=== PATIENT | female | born 1980 ===

== ENCOUNTER 2023-02-26 03:00 | Emergency (ER) | payer OTHER, SELFPAY ==
[2023-02-26 03:08] VITALS: BP 149/92; PULSE 94; RESP 16; TEMP 36.1; O2SAT 98; BMI 32.6
--- NOTE | 2023-02-26 03:55 | ED_ITS ---
HPI - General Adult General Chief complaint: General Medical Stated complaint: ?Exposure Time Seen by Provider: 02/26/23 03:50 Source: patient Mode of arrival: ambulatory Limitations: no limitations History of Present Illness HPI narrative: 42-year-old female came in concern of STDs. Patient been having sexual intercourse with her co-worker for the past 2 weeks, condom broke yesterday while having intercourse. Patient now is concern of STDs/HIV wanted to be checked and started on prophylactic medications. Related Data Previous Rx's Medication Instructions Recorded doxycycline hyclate 100 mg tablet 100 mg PO BID #20 tabs 02/26/23 Allergies Allergy/AdvReac Type Severity Reaction Status Date / Time ibuprofen AdvReac Anaphylaxis Verified 02/26/23 03:13 Review of Systems Review of Systems: All other systems are reviewed and are negative Constitutional: Reports as per HPI and Reports no additional constitutional complaints Eyes: Reports as per HPI and Reports no additional eye complaints Reports system reviewed and no additional complaints, except as documented Cardiovascular: Reports as per HPI and Reports no additional cardiovascular complaints Respiratory: Reports as per HPI and Reports no additional respiratory complaints Gastrointestinal: Reports as per HPI and Reports no additional gastrointestinal complaints Genitourinary: Reports no additional female genitourinary complaints Musculoskeletal: Reports no additional musculoskeletal complaints Skin/Breast: Reports system reviewed and no additional complaints, except as docu Psychiatric: Reports no additional psychiatric complaints Endocrine: Reports no additional endocrine complaints Hematologic/Lymphatic: Reports no additional hematologic/lymphatic complaints Allergic/Immunologic: Reports no additional allergic/immunologic complaints Reports system reviewed and no additional complaints, except as documented and Reports Abnormal speech present [facility] Social History Social History Alcohol intake: current Alcohol intake frequency: holidays/special occasions only Smoked in Last 30 Days: Yes Use of substances other than those prescribed or required for medical reasons: Yes Substance Use Type: Marijuana Substance Use Frequency: Chronic Longstanding Advance Directives: No Advance Directives Information Provided: Yes Physical Exam ED Vital Signs: Vital Signs - 24 hr 02/26/23 03:08 Temperature 97 F Pulse Rate 94 Respiratory Rate 16 Blood Pressure 149/92 H Pulse Oximetry 98 Oxygen Delivery Method Room Air BMI result Body Mass Index 32.6 Vital signs have been reviewed as appeared to be correct. Blood pressure normal. Heart rate normal. Respiration rate normal. Temperature normal. Oxygen saturation normal. Appearance: Alert. Oriented X3. No acute distress. Head: Normal external exam. Normocephalic. Atraumatic. No Contreras signs noted. No raccoon eyes noted Eyes: PERRLA. EOMI. Conjunctiva and sclera normal. Eyelids normal. ENT: TM's Normal. Pharynx normal. Uvula midline. Moist mucous membranes. No trismus noted. No drooling noted. No muffled voice noted. Neck: Normal inspection. Neck supple. FROM. No adenopathy. Thyroid Normal. No meningeal signs. No neck mass noted. CVS: Normal heart rate and rhythm. Heart sound normal. No murmurs noted. Pulses normal throughout. Respiratory: No respiratory distress. Painless inspiration. Breath sounds normal. No wheezes/rales/rhonchi noted. Chest nontender. No accessory muscle usage noted or decreased air movement noted. Abdomen: Soft and nontender. Bowel sounds normal in all 4 quadrants. No distention noted. No organomegaly noted. No visible injury noted. Back: No CVA tenderness. Full range of motion noted. Skin: Skin warm and dry. Normal skin color. Normal skin turgor. No rashes/lesions/lacerations noted. Extremities: No lower extremity edema. Extremities exhibit normal range of motion. Extremities nontender. Neuro: Oriented X 3. Cranial nerve exam: II-XII are grossly intact No motor deficit. No sensory deficit. Reflexes normal. Course Course Course Narrative: Unprotected sexual intercourse with concern STDs/HIV. Will start the patient on antiviral/anti HIV prophylactic will dispense package for 4 days patient will need to follow up with PCP to continue the medication for 30 days, patient also will be treated for GC/chlamydia. Reevaluation(s) Reevaluation #1: Patient received 8 pills of Raltegravir and 4 pills of Truvada once in the ED mistakenly by the RN. I explained to the patient the side effect of taking the the whole course of the antiviral medication once in the ED. Time: 05:24 Medications Administered Discontinued Medications Generic Name Dose Route Start Last Admin Trade Name Freq PRN Reason Stop Dose Admin Ceftriaxone Sodium 500 mg/ 0 mg 02/26/23 03:51 02/26/23 04:20 Lidocaine HCl 1 ml IM 02/26/23 03:52 500 kit ONCE ONE Administration Doxycycline Monohydrate 100 mg 02/26/23 03:51 02/26/23 04:20 Doxycycline Monohydrate 100 Mg Capsule PO 02/26/23 03:52 100 mg ONCE ONE Administration Raltegravir/Emtricitabine/Tenofovir 1 kit 02/26/23 03:51 02/26/23 04:21 Post Exposure Medication Kit PO 02/26/23 03:52 1 kit ONCE ONE Administration Medical Decision Making Differential Diagnosis Differential Diagnoses: The differential diagnosis associated with the presentation includes (GC/chlamydia/HIV/UTI//hepatitis a, B, C.) Admission/Observation Consideration of admission/observation: Escalation of care including admission/observation considered Lab Data MDM Lab Attestation statement: I reviewed the patient's lab results. Labs: Lab Results 02/26/23 02/26/23 Range/Units 04:05 04:05 Urine Color Yellow Urine Appearance Clear Urine pH 6.5 (5.0-9.0) Ur Specific Coffey 1.015 (1.005-1.025) Urine Protein Negative (Neg-Trace) mg/dL Urine Glucose (UA) Negative (Negative) mg/dL Urine Ketones Negative (Negative) mg/dL Urine Blood Negative (Negative) Urine Nitrite Negative (Negative) Ur Leukocyte Esterase Negative (Negative) Urine RBC 0-2 (0-2) /HPF Urine WBC 0-5 (0-5) /HPF Ur Squamous Epith Cells 0-2 (0-2) /HPF Urine Bacteria None Seen (None Seen) Hyaline Casts 0-2 (0-2) /LPF Urine Test NEGATIVE (NEGATIVE) Discharge Plan Discharge Clinical Impression: Exposure to sexually transmitted disease (STD) Patient Disposition: Home, Self-Care Instructions: Postexposure Prophylaxis (ED) Additional Instructions: Need to follow up with your PCP if you wish to continue with the post exposure antiviral medication to prescribe you a course of antiviral medication. Use protective sex. Results of your test should be back in 2 days routinely we called for positive result for your own reassurance she can call us back in 2 days to check on your result. Prescriptions: New doxycycline hyclate 100 mg tablet 100 mg PO BID Qty: 20 0RF Referrals: Rai Stoddard MD [Primary Care Provider] -
--- OUTSIDE RECORDS SUMMARY | 2023-02-26 04:06 | XMS_ITS | Continuity of Care Document ---
Author Name Unknown Organization [facility] Address [address] [place] [address]- Care Team Providers Care Contracts Law Professor Name Role Phone Joe Owen DO Primary Care Physician Encounter [facility] Date(s): 11/25/22 - 12/25/22 [facility] [address] [place] [address]- Allergies, Adverse Reactions, Alerts Substance Reaction Severity Status ciprofloxacin Active ibuprofen eye swelling, hives, pruritis Active Immunizations Given and Recorded Vaccine Date Status Refusal Reason hepatitis B adult vaccine 1 05/28/17 Given hepatitis B adult vaccine 2, 3 11/13/16 Recorded hepatitis B adult vaccine 10/02/16 Given tetanus/diphtheria/pertussis, acel(Tdap) 4 09/20/12 Given 1Result Comment: [05/28/2017] [facility] [id number] [facility] 3Result Comment: [05/28/2017[facility] [phone] 4Admin Note: vis given Medications buPROPion 100 mg/12 hours (SR) oral tablet, extended release TAKE 1 TABLET BY MOUTH EVERY MORNING Start Date: 11/26/22 Status: Ordered clindamycin 1% topical lotion 1 application, Topically, 2 times a day, # 60 mL, 6 Refills, Maintenance, 09/01/22 8:45:00 EST, Lotion, [id number], Partial fill upon patient request if the prescription is for a schedule II opioid drug., 1 application Topically 2 marley... Start Date: 09/01/22 Status: Ordered emtricitabine-tenofovir disoproxil 200 mg-300 mg oral tablet 0 Refills, Maintenance, 07/28/21 7:46:00 EST, Partial fill upon patient request if the prescriptionis for a schedule II opioid drug. Start Date: 07/28/21 Status: Ordered LaMICtal 150 mg oral tablet 1 tablet = 150 mg, By Mouth, 2 times a day, 0 Refills, Maintenance, 04/02/21 10:39:00 EDT, Partial fill upon patient request if the prescription is for a schedule II opioid drug. Start Date: 04/02/21 Status: Ordered LaMICtal 25 mg oral tablet 25 mg, 1, tablet, By Mouth, 2 times a day, Refills 0, Maintenance, 09/13/19 9:01:00 EST Start Date: 09/13/19 Status: Ordered Medrol Dosepak 4 mg oral tablet 1 pack/packet, By Mouth, Once, # 21 tablet, 0 Refills, Soft Stop, 10/29/22 14:37:00 EDT, Tablet, [facility][id number], Partial fill upon patient request if the prescription is for a schedule II opioid drug., 163, cm, 10/29/22 14:09:00 EDT, Height Start Date: 10/29/22 Status: Ordered ProAir HFA 90 mcg/inh inhalation aerosol with adapter 2, puffs, Inhalation, Every 4 hours, PRN, , cough, or SOB, # 1 each, Refills 0, Tot. Refills 0, Maintenance, 09/27/19 12:24:00 EST, Aerosol, Route to Pharmacy Electronically, [id number], [facility][id number], 163, cm,... Start Date: 09/27/19 Stop Date: 10/27/19 Status: Ordered terbinafine 250 mg oral tablet 0 Refills, Maintenance, 11/26/22 11:10:00 EDT, Partial fill upon patient request if the prescription is for a schedule II opioid drug. Start Date: 11/26/22 Status: Ordered Problem List Condition Confirmation Course Effective Dates Status Health St atus Informant At risk for sexually transmitted disease due to unprotected sex Confirmed Active Bipolar disorder Confirmed Active Obesity (BMI 30-39.9) Confirmed Active Exposure to HIV Confirmed Active Hidradenitis suppurativa Confirmed Active Physical exam Confirmed Active Obese class I Confirmed Active PTSD (post-traumatic stress disorder) Confirmed Active STD (sexually transmitted disease) Confirmed Active Smoking Confirmed Active Social History Social History Type Response Smoking Status Current every day sm oker; Type: Cigarettes; Other: 1/2 PPD; entered on: 12/18/16 Sex Patient Care team information Care Team Personnel Name: Joe Owen DO Position: [facility] Physician - Primary Care Member Role: PCP Address: Address: [address] [place] [id number]- Care Team Related Persons Name: NO, ONE
--- OUTSIDE RECORDS SUMMARY | 2023-02-26 04:06 | XMS_ITS | Continuity of Care Document ---
Author Name Unknown Organization [facility] Address [address] [place] [address]- Care Team Providers Care Locomotive Observer Name Role Phone Chance BAEZA, Fatimah Ceja Primary Care Physician Encounter [facility] Date(s): 08/26/21 - 09/25/21 [facility] [address] [place] [address]- Allergies, Adverse Reactions, Alerts Substance Reaction Severity Status ibuprofen eye swelling, hives, pruritis Active Immunizations Given and Recorded Vaccine Date Status Refusal Reason hepatitis B adult vaccine 1 05/28/17 Given hepatitis B adult vaccine 2, 3 11/13/16 Recorded hepatitis B adult vaccine 10/02/16 Given tetanus/diphtheria/pertussis, acel(Tdap) 4 09/20/12 Given 1Result Comment: [05/28/2017] [facility] 23452-461-48 2Location History: [facility] [place] 3Result Comment: [05/28/2017] [facility] [phone] 4Admin Note: vis given Medications emtricitabine-tenofovir disoproxil 200 mg-300 mg oral tablet [...] 9:01:00 EST Start Date: 09/13/19 Status: Ordered norethindrone 0.35 mg oral tablet 1 tablet = 0.35 mg, By Mouth, Daily, # 84 tablet, 3 Refills, Maintenance, 09/13/19 9:47:00 EST, Tablet, [facility][id number], 163, cm, 09/13/19 8:58:00 EST, Height Start Date: 09/13/19 Status: Ordered ProAir HFA 90 mcg/inh inhalation aerosol with adapter 2, puffs, Inhalation, Every 4 hours, PRN, , cough, or SOB, # 1 each, Refills 0, Tot. Refills 0, Maintenance, 09/27/19 12:24:00 EST, Aerosol, Route to Pharmacy Electronically, [id number], [facility] #[id number], 163, cm,... Start Date: 09/27/19 Stop Date: 10/27/19 Status: Ordered raltegravir 400 mg oral tablet 1 tablet = 400 mg, By Mouth, 2 times a day, # 52 tablet, 0 Refills, Maintenance, 07/28/21 8:30:00 EST, Tablet, [facility]/pharmacy #[id number], Partial fill upon patient request if the prescription is for a schedule II opioid drug., 163, cm, 07/28/21 7:44:00 EST,... Start Date: 07/28/21 Status: Ordered Problem List Condition Effective Dates Status Health Status Inform ant At risk for sexually transmi tted disease due to unprotected sex(Confirmed) Active Bipolar disorder(Confirmed) Active Physical exam(Confirmed) Active PTSD (post-traumatic stress disorder)(Confirmed) Active Smoking(Confirmed) Active Social History Social History Type Response Smoking Status Current every day sm oker; Type: Cigarettes; Other: 1/2 PPD; entered on: 12/18/16 Sex
--- OUTSIDE RECORDS SUMMARY | 2023-02-26 04:06 | XMS_ITS | Continuity of Care Document ---
Author Name Unknown Organization [facility] Address [address] [place] [address]- Care Team Providers Care Electromechanical Technologist Name Role Phone Chance BAEZA, Fatimah Ceja Primary Care Physician En[place] [facility] Date(s): 06/04/21 - 07/04/21 [facility] [address] [place] [address]- Allergies, Adverse Reactions, Alerts Substance Reaction Severity Status ibuprofen eye swelling, hives, pruritis Active Immunizations Given and Recorded Vaccine Date Status Refusal Reason hepatitis B adult vaccine 1 05/28/17 Given hepatitis B adult vaccine 2, 3 11/13/16 Recorded hepatitis B adult vaccine 10/02/16 Given tetanus/diphtheria/pertussis, acel(Tdap) 4 09/20/12 Given 1Result Comment: [05/28/2017] [facility] 14231-433-01 2Location History: [facility] [place] 3Result Comment: [05/28/2017] [facility] [phone] 4Admin Note: vis given Medications LaMICtal 150 mg oral tablet 1 tablet [...] 3 Refills, Maintenance, 09/13/19 9:47:00 EST, Tablet, [facility] #[id number], 163, cm, 09/13/19 8:58:00 EST, Height Start Date: 09/13/19 Status: Ordered ProAir HFA 90 mcg/inh inhalation aerosol with adapter 2, puffs, Inhalation, Every 4 hours, PRN, , cough, or SOB, # 1 each, Refills 0, Tot. Refills 0, Maintenance, 09/27/19 12:24:00 EST, Aerosol, Route to Pharmacy Electronically, [id number], [facility] #[id number], 163, cm,... Start Date: 09/27/19 Stop Date: 10/27/19 Status: Ordered Problem List Condition Effective Dates [...]
--- OUTSIDE RECORDS SUMMARY | 2023-02-26 04:06 | XMS_ITS | Continuity of Care Document ---
Author Name Unknown Organization [facility] Address [address] [place] [address]- Care Team Providers Care Dining Car Steward Name Role Phone Chance BAEZA, Fatimah Ceja Primary Care Physician Encounter [facility] Date(s): 08/20/21 - 09/19/21 [facility] [address] [place] [address]- Allergies, Adverse Reactions, Alerts Substance Reaction Severity Status ibuprofen eye swelling, hives, pruritis Active Immunizations Given and Recorded Vaccine Date Status Refusal Reason hepatitis B adult vaccine 1 05/28/17 Given hepatitis B adult vaccine 2, 3 11/13/16 Recorded hepatitis B adult vaccine 10/02/16 Given tetanus/diphtheria/pertussis, acel(Tdap) 4 09/20/12 Given 1Result Comment: [05/28/2017] [facility] 22147-113-85 2Location History: [facility] 3Result Comment: [05/28/2017] [facility] [phone] 4Admin Note: vis given Medications emtricitabine-tenofovir disoproxil [...] 3 Refills, Maintenance, 09/13/19 9:47:00 EST, Tablet, [facility] #[id number], 163, cm, 09/13/19 8:58:00 EST, Height Start Date: 09/13/19 Status: Ordered ProAir HFA 90 mcg/inh inhalation aerosol with adapter 2, puffs, Inhalation, Every 4 hours, PRN, , cough, or SOB, # 1 each, Refills 0, Tot. Refills 0, Maintenance, 09/27/19 12:24:00 EST, Aerosol, Route to Pharmacy Electronically, [id number], [facility] #[id number], 163, cm,... Start Date: 09/27/19 Stop Date: 10/27/19 Status: Ordered raltegravir 400 mg oral tablet 1 tablet = 400 mg, By Mouth, 2 times a day, # 52 tablet, 0 Refills, Maintenance, 07/28/21 8:30:00 EST, Tablet, [facility]/pharmacy #[id number], Partial fill upon patient request if [...]
--- OUTSIDE RECORDS SUMMARY | 2023-02-26 04:06 | XMS_ITS | Continuity of Care Document ---
Author Name Unknown Organization [facility] Address [address] [place] [address]- Care Team Providers Care Document Advisor Name Role Phone Chance BAEZA, Fatimah Ceja Primary Care Physician Encounter [facility] Date(s): 09/22/21 - 09/29/21 [facility] [address] [place] [address]- Encounter Diagnosis Coccydynia(Discharge Diagnosis) - 09/22/21 Attending Physician: June LANGSTON, Judith Ceja Referring Physician: Fatimah Fletcher NP Allergies, Adverse Reactions, Alerts Substance Reaction Severity Status ibuprofen eye swelling, hives, pruritis Active Immunizations Given and Recorded Vaccine Date Status Refusal Reason hepatitis B adult vaccine 1 05/28/17 Given hepatitis B adult vaccine 2, 3 11/13/16 Recorded hepatitis B adult vaccine 10/02/16 Given tetanus/diphtheria/pertussis, acel(Tdap) 4 09/20/12 Given 1Result Comment: [05/28/2017] [facility] 22180-232-25 2Location History: [facility] 3Result Comment: [05/28/2017] [facility] [phone] 4Admin Note: vis given Medications emtricitabine-tenofovir disoproxil [...] 3 Refills, Maintenance, 09/13/19 9:47:00 EST, Tablet, [facility] #[id number], 163, cm, 09/13/19 8:58:00 EST, Height Start Date: 09/13/19 Status: Ordered ProAir HFA 90 mcg/inh inhalation aerosol with adapter 2, puffs, Inhalation, Every 4 hours, PRN, , cough, or SOB, # 1 each, Refills 0, Tot. Refills 0, Maintenance, 09/27/19 12:24:00 EST, Aerosol, Route to Pharmacy Electronically, [id number], [facility] #[id number], 163, cm,... Start Date: 09/27/19 Stop Date: 10/27/19 Status: Ordered raltegravir 400 mg oral tablet 1 tablet = 400 mg, By Mouth, 2 times a day, # 52 tablet, 0 Refills, Maintenance, 07/28/21 8:30:00 EST, Tablet, [facility]/pharmacy #[id number], Partial fill upon patient request if the prescription is for a schedule II opioid drug., 163, cm, 07/28/21 7:44:00 EST,... Start Date: 07/28/21 Status: Ordered Problem List Condition Effective Dates Status Health Status Inform ant At risk for sexually transmi tted disease due to unprotected sex(Confirmed) Active Bipolar disorder(Confirmed) Active Physical exam(Confirmed) Active PTSD (post-traumatic stress disorder)(Confirmed) Active Smoking(Confirmed) Active Diagnosis Diagnosis Type Effective Dates Health Status Clini hanny Service Informant Coccydynia Discharge Diagnosis 09/22/21 Vital Signs Most recent to oldest [Reference Range]: 1 Height 163.00 cm (09/22/21 4:51 PM) Pulse Rate [55-90 bpm] 77 bpm (09/22/21 4:51 PM) Blood Pressure [90-138/55-84 mm Hg] 124/ 80mm Hg (09/22/21 4:51 PM) Blood pressure sites Arm, right (09/22/21 4:51 PM) Social History Social History Type Response Smoking Status Current every day sarah juarez; Type: Cigarettes; Other: 1/2 PPD; entered on: 12/18/16 Sex
--- OUTSIDE RECORDS SUMMARY | 2023-02-26 04:06 | XMS_ITS | Continuity of Care Document ---
Author Name Unknown Organization [facility] Address [address] [place] [address]- Care Team Providers Care Front Desk Associate Name Role Phone Joe Owen DO Primary Care Physician [place] [facility] Date(s): 11/29/22 - 12/29/22 [facility] [address] [place] [address]- Allergies, Adverse Reactions, Alerts Substance Reaction Severity Status ciprofloxacin Active ibuprofen eye swelling, hives, pruritis Active Immunizations Given and Recorded Vaccine Date Status Refusal Reason hepatitis B adult vaccine 1 05/28/17 Given hepatitis B adult vaccine 2, 3 11/13/16 Recorded hepatitis B adult vaccine 10/02/16 Given tetanus/diphtheria/pertussis, acel(Tdap) 4 09/20/12 Given 1Result Comment: [05/28/2017] [facility] [id number] [facility]: [05/28/2017[facility] [phone] 4Admin Note: vis given Medications buPROPion 100 mg/12 hours (SR) oral tablet, extended release TAKE 1 TABLET BY MOUTH EVERY MORNING Start Date: 11/26/22 Status: Ordered clindamycin 1% topical lotion 1 application, Topically, 2 times a day, # 60 mL, 6 Refills, Maintenance, 09/01/22 8:45:00 EST, Lotion, [facility] #[id number], Partial fill upon patient request if the [...] Refills, Soft Stop, 10/29/22 14:37:00 EDT, Tablet, [facility] #[id number], Partial fill upon patient request if the prescription is for a schedule II opioid drug., 163, cm, 10/29/22 14:09:00 EDT, Height Start Date: 10/29/22 Status: Ordered ProAir HFA 90 mcg/inh inhalation aerosol with adapter 2, puffs, Inhalation, Every 4 hours, PRN, , cough, or SOB, # 1 each, Refills 0, Tot. Refills 0, Maintenance, 09/27/19 12:24:00 EST, Aerosol, Route to Pharmacy Electronically, [id number], [facility] #[id number], 163, cm,... Start Date: 09/27/19 Stop Date: [...] Team Personnel Name: Joe Owen DO Position: [facility] Physician - Primary Care Member Role: PCP Address: Address: [address] [place] [address]- Care Team Related Persons Name: NO, ONE
--- OUTSIDE RECORDS SUMMARY | 2023-02-26 04:06 | XMS_ITS | Continuity of Care Document ---
Author Name Unknown Organization [facility] Address [address] [place] [address]- Care Team Providers Care Support Manager Name Role Phone Joe Owen DO Primary Care Physician [phone] [place] [facility] Date(s): 10/14/22 - 11/13/22 [facility] [address] [place] [address]- Allergies, Adverse Reactions, Alerts Substance Reaction Severity Status ciprofloxacin Active ibuprofen eye swelling, hives, pruritis Active Immunizations Given and Recorded Vaccine Date Status Refusal Reason hepatitis B adult vaccine 1 05/28/17 Given hepatitis B adult vaccine 2, 3 11/13/16 Recorded hepatitis B adult vaccine 10/02/16 Given tetanus/diphtheria/pertussis, acel(Tdap) 4 09/20/12 Given 1Result Comment: [05/28/2017] [facility] [id number] 2Location History: [facility] [place] 3Result Comment: [05/28/2017] [facility] [phone] 4Admin Note: vis given Medications clindamycin 1% topical lotion 1 application, Topically, 2 times a day, # 60 mL, 6 Refills, Maintenance, 09/01/22 8:45:00 EST, Lotion, [facility] #[id number], Partial fill upon patient request if the [...] Refills, Soft Stop, 10/29/22 14:37:00 EDT, Tablet, [facility] #[id number], Partial fill upon patient request if the prescription is for a schedule II opioid drug., 163, cm, 10/29/22 14:09:00 EDT, Height Start Date: 10/29/22 Status: Ordered ProAir HFA 90 mcg/inh inhalation aerosol with adapter 2, puffs, Inhalation, Every 4 hours, PRN, , cough, or SOB, # 1 each, Refills 0, Tot. Refills 0, Maintenance, 09/27/19 12:24:00 EST, Aerosol, Route to Pharmacy Electronically, [id number], [facility] #[id number], 163, cm,... Start Date: 09/27/19 Stop Date: 10/27/19 Status: Ordered Problem List Condition Confirmation Course [...] Team Personnel Name: Joe Owen DO Position: S Primary Care Physician Member Role: PCP Address: Address: [address] [place] [id number]- Care Team Related Persons Name: NO, ONE
--- OUTSIDE RECORDS SUMMARY | 2023-02-26 04:06 | XMS_ITS | Continuity of Care Document ---
Author Name Unknown Organization [facility] Address [address] [place] [address]- Care Team Providers Care Manager Payer Name Role Phone Joe Owen DO Primary Care Physician [phone] [place] [facility] [place] [facility] [address] [place] [address]- Allergies, Adverse Reactions, Alerts Substance Reaction Severity Status ciprofloxacin Active ibuprofen eye swelling, hives, pruritis Active Immunizations Given and Recorded Vaccine Date Status Refusal Reason hepatitis B adult vaccine 1 05/28/17 Given hepatitis B adult vaccine 2, 3 11/13/16 Recorded hepatitis B adult vaccine 10/02/16 Given tetanus/diphtheria/pertussis, acel(Tdap) 4 09/20/12 Given 1Result Comment: [05/28/2017] [facility] 60820-972-64 2[facility] 3Result Comment: [05/28/2017] [facility] [phone] 4Admin Note: vis given Medications buPROPion 100 mg/12 hours (SR) oral tablet, extended release TAKE 1 TABLET BY MOUTH EVERY MORNING Start Date: 11/26/22 Status: Ordered clindamycin 1% topical lotion 1 application, Topically, 2 times a day, # 60 mL, 6 Refills, Maintenance, 09/01/22 8:45:00 EST, Lotion, [facility] #[id number], Partial fill upon patient request if the [...] Refills, Soft Stop, 10/29/22 14:37:00 EDT, Tablet, [facility] #[id number], Partial fill upon patient request if the prescription is for a schedule II opioid drug., 163, cm, 10/29/22 14:09:00 EDT, Height Start Date: 10/29/22 Status: Ordered ProAir HFA 90 mcg/inh inhalation aerosol with adapter 2, puffs, Inhalation, Every 4 hours, PRN, , cough, or SOB, # 1 each, Refills 0, Tot. Refills 0, Maintenance, 09/27/19 12:24:00 EST, Aerosol, Route to Pharmacy Electronically, [id number], [facility] #[id number], 163, cm,... Start Date: 09/27/19 Stop Date: [...] Team Personnel Name: Joe Owen DO Position: [facility] Physician - Primary Care Member Role: PCP Address: Address: [address] [place] [address]- Care Team Related Persons Name: NO, ONE
--- OUTSIDE RECORDS SUMMARY | 2023-02-26 04:06 | XMS_ITS | Continuity of Care Document ---
Author Name Unknown Organization [facility] Address [address] [place] [address]- Care Team Providers Care Ironworker Helper Shop Name Role Phone Joe Owen DO Primary Care Physician [place] [facility] [place] 09/30/22 [facility] [address] [place], [place] [address] Attending Physician: Admavelino, Esau Admitting Physician: Admtr, Ar8 Referring Physician: Admtr, Ar8 Allergies, Adverse Reactions, Alerts Substance Reaction Severity Status ciprofloxacin Active ibuprofen eye swelling, hives, pruritis Active Immunizations Given and Recorded Vaccine Date Status Refusal Reason hepatitis B adult vaccine 1 05/28/17 Given hepatitis B adult vaccine 2, 3 11/13/16 Recorded hepatitis B adult vaccine 10/02/16 Given tetanus/diphtheria/pertussis, acel(Tdap) 4 09/20/12 Given 1Result Comment: [05/28/2017] [facility] 31392-623-70 2Location History: [facility] 3Result Comment: [05/28/2017] [facility] [phone] 4Admin Note: vis given Medications clindamycin 1% topical lotion 1 application, Topically, 2 times a day, # 60 mL, 6 Refills, Maintenance, 09/01/22 8:45:00 EST, Lotion, [facility] #[id number], Partial fill upon patient request if the [...] 9:01:00 EST Start Date: 09/13/19 Status: Ordered ProAir HFA 90 mcg/inh inhalation aerosol with adapter 2, puffs, Inhalation, Every 4 hours, PRN, , cough, or SOB, # 1 each, Refills 0, Tot. Refills 0, Maintenance, 09/27/19 12:24:00 EST, Aerosol, Route to Pharmacy Electronically, [id number], [facility] #[id number], 163, cm,... Start Date: 09/27/19 Stop Date: [...] Active PTSD (post-traumatic stress disorder) Confirmed Active Smoking Confirmed Active Social History Social History Type Response Smoking Status Current every day sm oker; Type: Cigarettes; Other: 1/2 PPD; entered on: 12/18/16 Sex Patient Care team information Care Team Personnel Name: Joe Owen DO Position: S Primary Care Physician Member Role: PCP Address: Address: [address] [place] [address]- Care Team Related Persons Name: LAUREN WERO
--- OUTSIDE RECORDS SUMMARY | 2023-02-26 04:06 | XMS_ITS | Continuity of Care Document ---
Author Name Unknown Organization [facility] Address [address] [place] [address]- Care Team Providers Care Nuclear Waste Process Operator Name Role Phone Beth Eller NP Primary Care Physician [phone] Encounter [facility] [place] Date(s): 06/15/22 - 07/15/22 [facility] [address] [place], [place] [address] Attending Physician: Esau Colunga Admitting Physician: AdmtrEsau Referring Physician: Admtr, Ar8 Allergies, Adverse Reactions, Alerts Substance Reaction Severity Status ciprofloxacin Active ibuprofen eye swelling, hives, pruritis Active Immunizations Given and Recorded Vaccine Date Status Refusal Reason hepatitis B adult vaccine 1 05/28/17 Given hepatitis B adult vaccine 2, 3 11/13/16 Recorded hepatitis B adult vaccine 10/02/16 Given tetanus/diphtheria/pertussis, acel(Tdap) 4 09/20/12 Given 1Result Comment: [05/28/2017] [facility] 44740-254-85 2Location History: [facility] 3Result Comment: [05/28/2017] [facility] [phone] 4Admin Note: vis given Medications emtricitabine-tenofovir disoproxil [...] 12:24:00 EST, Aerosol, Route to Pharmacy Electronically, [id number], [facility] #[id number], 163, cm,... Start Date: 09/27/19 Stop Date: 10/27/19 Status: Ordered Problem List Condition Confirmation Course Effective Dates Status Health St atus Informant At risk for sexually transmitted disease due to unprotected sex Confirmed Active Bipolar disorder Confirmed Active Exposure to HIV Confirmed Active Physical exam Confirmed Active Obese class I Confirmed Active PTSD (post-traumatic stress disorder) Confirmed Active Smoking Confirmed Active Social History Social History Type Response Smoking Status Current every day sm oker; Type: Cigarettes; Other: 1/2 PPD; entered on: 12/18/16 Sex Note * Event Display: Non BH Lab Results Authored Date: * Event Display: Non BH Lab Results Authored Date: * Event Display: Non BH Lab Results Authored Date: Patient Care team information Care Team Personnel Name: Beth Eller NP Position: [facility] Associate Professional Member Role: PCP Address: Address: [address] [place] [address] Care Team Related Persons Name: NO, WERO
--- OUTSIDE RECORDS SUMMARY | 2023-02-26 04:06 | XMS_ITS | Continuity of Care Document ---
Author Name Unknown Organization [facility] Address [address] [place] [address]- Care Team Providers Care Draw Off Worker Name Role Phone Daphnie BAEZA, Beth Serrano Primary Care Physician En[place] [facility] [place] Date(s): 01/27/22 - 02/26/22 [facility] [address] [place] [address]- Allergies, Adverse Reactions, Alerts Substance Reaction Severity Status ciprofloxacin Active ibuprofen eye swelling, hives, pruritis Active Immunizations Given and Recorded Vaccine Date Status Refusal Reason hepatitis B adult vaccine 1 05/28/17 Given hepatitis B adult vaccine 2, 3 11/13/16 Recorded hepatitis B adult vaccine 10/02/16 Given tetanus/diphtheria/pertussis, acel(Tdap) 4 09/20/12 Given 1Result Comment: [05/28/2017] [facility] 16520-188-03 2Location History: [facility] [place] 3Result Comment: [05/28/2017] [facility] [phone] 4Admin Note: vis given Medications emtricitabine-tenofovir disoproxil [...] 12:24:00 EST, Aerosol, Route to Pharmacy Electronically, [id number], [facility] #[id number], 163, cm,... Start Date: 09/27/19 Stop Date: 10/27/19 Status: Ordered Problem List Condition Effective Dates Status Health Status Inform ant At risk for sexually transmi tted disease due to unprotected sex(Confirmed) Active Bipolar disorder(Confirmed) Active Exposure to HIV(Confirmed) Active Physical exam(Confirmed) Active Obese class I(Confirmed) Active PTSD (post-traumatic stress disorder)(Confirmed) Active Smoking(Confirmed) Active Social History Social History Type Response Smoking Status Current every day sarah juarez; Type: Cigarettes; Other: 1/2 PPD; entered on: 12/18/16 Sex
--- OUTSIDE RECORDS SUMMARY | 2023-02-26 04:06 | XMS_ITS | Continuity of Care Document ---
Author Name Unknown Organization [facility] Address [address] [place] [address]- Care Team Providers Care Museum Docent Name Role Phone Chance BAEZA, Fatimah Ceja Primary Care Physician Encounter [facility] [place] Date(s): 06/10/21 - 07/10/21 [facility] [address] [place] [address]- Allergies, Adverse Reactions, Alerts Substance Reaction Severity Status ibuprofen eye swelling, hives, pruritis Active Immunizations Given and Recorded Vaccine Date Status Refusal Reason hepatitis B adult vaccine 1 05/28/17 Given hepatitis B adult vaccine 2, 3 11/13/16 Recorded hepatitis B adult vaccine 10/02/16 Given tetanus/diphtheria/pertussis, acel(Tdap) 4 09/20/12 Given 1Result Comment: [05/28/2017] [facility] 15164-708-99 2Location History: [facility] [place] 3Result Comment: [05/28/2017] [facility] [phone] 4Admin Note: vis given Medications LaMICtal 150 [...] 3 Refills, Maintenance, 09/13/19 9:47:00 EST, Tablet, [facility] #[id number], 163, cm, 09/13/19 8:58:00 EST, Height Start Date: 09/13/19 Status: Ordered ProAir HFA 90 mcg/inh inhalation aerosol with adapter 2, puffs, Inhalation, Every 4 hours, PRN, , cough, or SOB, # 1 each, Refills 0, Tot. Refills 0, Maintenance, 09/27/19 12:24:00 EST, Aerosol, Route to Pharmacy Electronically, [id number], [facility] #[id number], 163, cm,... Start Date: 09/27/19 Stop Date: [...]
--- OUTSIDE RECORDS SUMMARY | 2023-02-26 04:06 | XMS_ITS | Continuity of Care Document ---
Author Name Unknown Organization [facility] Address [address] [place] [address]- Care Team Providers Care Master Motorcycle Technician Name Role Phone Chance BAEZA, Fatimah Ceja Primary Care Physician [place] [facility] [place] Date(s): 04/08/21 - 05/08/21 [facility] [address] [place] [address]- Attending Physician: Esau Colunga Admitting Physician: AdmtrEsau Referring Physician: Admtr, Ar8 Allergies, Adverse Reactions, Alerts Substance Reaction Severity Status ibuprofen eye swelling, hives, pruritis Active Immunizations Given and Recorded Vaccine Date Status Refusal Reason hepatitis B adult vaccine 1 05/28/17 Given hepatitis B adult vaccine 2, 3 11/13/16 Recorded hepatitis B adult vaccine 10/02/16 Given tetanus/diphtheria/pertussis, acel(Tdap) 4 09/20/12 Given 1Result Comment: [05/28/2017] [facility] 87884-312-37 2Location History: [facility] 3Result Comment: [05/28/2017] [facility] [phone] 4Admin Note: vis given Medications LaMICtal 150 [...] 3 Refills, Maintenance, 09/13/19 9:47:00 EST, Tablet, [facility] #[id number], 163, cm, 09/13/19 8:58:00 EST, Height Start Date: 09/13/19 Status: Ordered ProAir HFA 90 mcg/inh inhalation aerosol with adapter 2, puffs, Inhalation, Every 4 hours, PRN, , cough, or SOB, # 1 each, Refills 0, Tot. Refills 0, Maintenance, 09/27/19 12:24:00 EST, Aerosol, Route to Pharmacy Electronically, [id number], [facility] #[id number], 163, cm,... Start Date: 09/27/19 Stop Date: [...]
--- OUTSIDE RECORDS SUMMARY | 2023-02-26 04:06 | XMS_ITS | Continuity of Care Document ---
Author Name Unknown Organization [facility] Address [address] [place] [address]- Care Team Providers Care Marketing Communications Specialist Name Role Phone Chance BAEZA, Fatimah Ceja Primary Care Physician Encounter [facility] Date(s): 02/28/21 - 03/30/21 [facility] [address] [place], [place] [address] Allergies, Adverse Reactions, Alerts Substance Reaction Severity Status ibuprofen eye swelling, hives, pruritis Active Immunizations Given and Recorded Vaccine Date Status Refusal Reason hepatitis B adult vaccine 1 05/28/17 Given hepatitis B adult vaccine 2, 3 11/13/16 Recorded hepatitis B adult vaccine 10/02/16 Given tetanus/diphtheria/pertussis, acel(Tdap) 4 09/20/12 Given 1Result Comment: [05/28/2017] [facility] 69047-451-49 2Location History: [facility] [place] 3Result Comment: [05/28/2017[facility] [phone] 4Admin Note: vis given Medications LaMICtal 25 mg oral tablet 25 mg, 1, tablet, By Mouth, 2 times a day, Refills 0, Maintenance, 09/13/19 9:01:00 EST Start Date: 09/13/19 Status: Ordered norethindrone 0.35 mg oral tablet 1 tablet = 0.35 mg, By Mouth, Daily, # 84 tablet, 3 Refills, Maintenance, 09/13/19 9:47:00 EST, Tablet, [facility] #[id number], 163, cm, 09/13/19 8:58:00 EST, Height Start Date: 09/13/19 Status: Ordered ProAir HFA 90 mcg/inh inhalation aerosol with adapter 2, puffs, Inhalation, Every 4 hours, PRN, , cough, or SOB, # 1 each, Refills 0, Tot. Refills 0, Maintenance, 09/27/19 12:24:00 EST, Aerosol, Route to Pharmacy Electronically, [id number], [id number], 163, cm,... Start Date: 09/27/19 Stop Date: [...]
--- OUTSIDE RECORDS SUMMARY | 2023-02-26 04:06 | XMS_ITS | Continuity of Care Document ---
Author Name Unknown Organization [facility] Address [address] [place] [address]- Care Team Providers Care Airfield Manager Name Role Phone Chance BAEZA, Fatimah Ceja Primary Care Physician Encounter [facility] Date(s): 08/19/21 - 09/18/21 [facility] [address] [place] [address]- Allergies, Adverse Reactions, Alerts Substance Reaction Severity Status ibuprofen eye swelling, hives, pruritis Active Immunizations Given and Recorded Vaccine Date Status Refusal Reason hepatitis B adult vaccine 1 05/28/17 Given hepatitis B adult vaccine 2, 3 11/13/16 Recorded hepatitis B adult vaccine 10/02/16 Given tetanus/diphtheria/pertussis, acel(Tdap) 4 09/20/12 Given 1Result Comment: [05/28/2017] [facility] 18640-809-10 2Location History: [facility] [place] 3Result Comment: [facility]05/28/2017[facility] [phone] 4Admin Note: vis given Medications emtricitabine-tenofovir disoproxil [...] 0, Maintenance, 09/13/19 9:01:00 EST Start Date: 2/19/20 Status: Ordered norethindrone 0.35 mg oral tablet 1 tablet = 0.35 mg, By Mouth, Daily, # 84 tablet, 3 Refills, Maintenance, 09/13/19 9:47:00 EST, Tablet, [facility] #[id number], 163, cm, 09/13/19 8:58:00 EST, Height Start Date: 09/13/19 Status: Ordered ProAir HFA 90 mcg/inh inhalation aerosol with adapter 2, puffs, Inhalation, Every 4 hours, PRN, , cough, or SOB, # 1 each, Refills 0, Tot. Refills 0, Maintenance, 09/27/19 12:24:00 EST, Aerosol, Route to Pharmacy Electronically, [id number], [facility] #[id number], 163, cm,... Start Date: 09/27/19 Stop Date: 10/27/19 Status: Ordered raltegravir 400 mg oral tablet 1 tablet = 400 mg, By Mouth, 2 times a day, # 52 tablet, 0 Refills, Maintenance, 07/28/21 8:30:00 EST, Tablet, [facility] #[id number], Partial fill upon patient request if [...]
--- OUTSIDE RECORDS SUMMARY | 2023-02-26 04:06 | XMS_ITS | Continuity of Care Document ---
Author Name Unknown Organization [facility] Address [address] [place] [address]- Care Team Providers Care Cushion Filler Name Role Phone Daphnie BAEZA, Beth Serrano Primary Care Physician [place] [facility] [place] Date(s): 12/03/21 - 12/10/21 [facility] [address] [place] [address]- Encounter Diagnosis Pharyngitis(Discharge Diagnosis) - 12/03/21 Anxiety about health(Discharge Diagnosis) - 12/03/21 Attending Physician: Annabel Ronquillo NP Allergies, Adverse Reactions, Alerts Substance Reaction Severity Status ibuprofen eye swelling, hives, pruritis Active Immunizations Given and Recorded Vaccine Date Status Refusal Reason hepatitis B adult vaccine 1 05/28/17 Given hepatitis B adult vaccine 2, 3 11/13/16 Recorded hepatitis B adult vaccine 10/02/16 Given tetanus/diphtheria/pertussis, acel(Tdap) 4 09/20/12 Given 1Result Comment: [05/28/2017] [facility] [id number] 2Location History: [facility] 3Result Comment: [05/28/2017] [facility] [phone] 4Admin Note: vis given Medications emtricitabine-tenofovir disoproxil [...] 12:24:00 EST, Aerosol, Route to Pharmacy Electronically, [id number], [facility] #[id number], 163, cm,... Start Date: 09/27/19 Stop Date: 10/27/19 Status: Ordered Problem List Condition Effective Dates Status Health Status Inform ant At risk for sexually transmi tted disease due to unprotected sex(Confirmed) Active Bipolar disorder(Confirmed) Active Exposure to HIV(Confirmed) Active Physical exam(Confirmed) Active Obese class I(Confirmed) Active PTSD (post-traumatic stress disorder)(Confirmed) Active Smoking(Confirmed) Active Diagnosis Diagnosis Type Effective Dates Health Status Clinical Service Informant Pharyngitis Discharge Diagnosis 12/03/21 Anxiety about health Discharge Diagnosis 12/03/21 Vital Signs Most recent to oldest [Reference Range]: 1 Height 163.00 cm (12/03/21 7:51 AM) Weight 84.9 kg (12/03/21 7:51 AM) Oxygen Saturation [94-100 %] 98 % (12/03/21 7:51 AM) Pulse Rate [55-90 bpm] 70 bpm (12/03/21 7:51 AM) Body Mass Index [18.5-24.99] 31.95 *>HHI* (12/03/21 7:51 AM) Blood Pressure [90-138/55-84 mm Hg] 132/ 71mm Hg (12/03/21 7:51 AM) Respiratory Rate [16-30 br/min] 18 br/mi n (12/03/21 7:51 AM) Blood pressure sites Arm, right (12/03/21 7:51 AM) Weight Obtained Via lump (5/11/22 7:51 AM) Social History Social History Type Response Smoking Status Current every day sarah juarez; Type: Cigarettes; Other: 1/2 PPD; entered on: 12/18/16 Sex
--- OUTSIDE RECORDS SUMMARY | 2023-02-26 04:06 | XMS_ITS | Continuity of Care Document ---
Author Name Unknown Organization [facility] Address [address] [place] [address]- Care Team Providers Care Center Receptionist Name Role Phone Chance BAEZA, Fatimah Ceja Primary Care Physician Encounter [facility] [place] Date(s): 09/13/19 - 09/13/[address] [address]- [facility] Attending Physician: Fatimah Fletcher NP Allergies, Adverse Reactions, Alerts Substance Reaction Severity Status ibuprofen eye swelling, hives, pruritis Active Immunizations Given and Recorded Vaccine Date Status Refusal Reason hepatitis B adult vaccine 1 05/28/17 Given hepatitis B adult vaccine 2, 3 11/13/16 Recorded hepatitis B adult vaccine 10/02/16 Given tetanus/diphtheria/pertussis, acel(Tdap) 4 09/20/12 Given 1Result Comment: [05/28/2017] [facility] 57772-432-56 2[facility] 3Result Comment: [05/28/2017] [facility] [phone] 4Admin Note: vis given Medications LaMICtal 25 mg oral tablet 25 mg, 1, tablet, By Mouth, 2 times a day, Refills 0, Maintenance, 09/13/19 9:01:00 EST Start Date: 09/13/19 Status: Ordered norethindrone 0.35 mg oral tablet 1 tablet = 0.35 mg, By Mouth, Daily, # 84 tablet, 3 Refills, Maintenance, 09/13/19 9:47:00 EST, Tablet, [facility] #[id number], 163, cm, 09/13/19 8:58:00 EST, Height Start Date: 09/13/19 Status: Ordered Problem List Condition Effective Dates [...]
--- OUTSIDE RECORDS SUMMARY | 2023-02-26 04:06 | XMS_ITS | Continuity of Care Document ---
Author Name Unknown Organization [facility] Address [address] [place] [address]- Care Team Providers Care Participant Administrator Name Role Phone Daphnie BAEZA, Beth Serrano Primary Care Physician [phone] [place] [facility] [place] Date(s): 03/02/22 - 04/01/22 [facility] [address] [place] [address]- Allergies, Adverse Reactions, Alerts Substance Reaction Severity Status ciprofloxacin Active ibuprofen eye swelling, hives, pruritis Active Immunizations Given and Recorded Vaccine Date Status Refusal Reason hepatitis B adult vaccine 1 05/28/17 Given hepatitis B adult vaccine 2, 3 11/13/16 Recorded hepatitis B adult vaccine 10/02/16 Given tetanus/diphtheria/pertussis, acel(Tdap) 4 09/20/12 Given 1Result Comment: [05/28/2017] [facility] 97591-916-14 2Location History: [facility] [place] 3Result Comment: [05/28/2017] [facility] [phone] 4Admin Note: vis given Medications emtricitabine-tenofovir disoproxil [...] 12:24:00 EST, Aerosol, Route to Pharmacy Electronically, [id number], [facility] #[id number], 163, cm,... Start Date: 09/27/19 Stop Date: [...] Response Smoking Status Current every day sarah oker; Type: Cigarettes; Other: 1/2 PPD; entered on: 12/18/16 Sex Care Team Personnel Name: Beth Eller NP Address: [address] [place], [place] [address]
--- OUTSIDE RECORDS SUMMARY | 2023-02-26 04:06 | XMS_ITS | Continuity of Care Document ---
Author Name Unknown Organization [facility] Address [address] [place] [address]- Care Team Providers Care Vp Integrity Name Role Phone Daphnie BAEZA, Beth Serrano Primary Care Physician En[place] [facility] [place] Date(s): 03/02/22 - 04/01/22 [facility] [address] [place] [address]- Allergies, Adverse Reactions, Alerts Substance Reaction Severity Status ciprofloxacin Active ibuprofen eye swelling, hives, pruritis Active Immunizations Given and Recorded Vaccine Date Status Refusal Reason hepatitis B adult vaccine 1 05/28/17 Given hepatitis B adult vaccine 2, 3 11/13/16 Recorded hepatitis B adult vaccine 10/02/16 Given tetanus/diphtheria/pertussis, acel(Tdap) 4 09/20/12 Given 1Result Comment: [05/28/2017] [facility] [phone] 2Location History: [facility] [place] 3Result Comment: [05/28/2017] [facility] [phone] 4Admin Note: vis given Medications emtricitabine-tenofovir disoproxil [...] 12:24:00 EST, Aerosol, Route to Pharmacy Electronically, [id number], [facility] #[id number], 163, cm,... Start Date: 09/27/19 Stop Date: [...] Personnel Name: Beth Eller NP Address: [address] [place], [place] [address]
--- OUTSIDE RECORDS SUMMARY | 2023-02-26 04:06 | XMS_ITS | Continuity of Care Document ---
Author Name Unknown Organization [facility] Address [address] [place] [address]- Care Team Providers Care Lipcoat Sprayer Name Role Phone Chance BAEZA, Fatimah Ceja Primary Care Physician Encounter [facility] Date(s): 06/06/21 - 07/06/21 [facility] [address] [place] [address]- Allergies, Adverse Reactions, Alerts Substance Reaction Severity Status ibuprofen eye swelling, hives, pruritis Active Immunizations Given and Recorded Vaccine Date Status Refusal Reason hepatitis B adult vaccine 1 05/28/17 Given hepatitis B adult vaccine 2, 3 11/13/16 Recorded hepatitis B adult vaccine 10/02/16 Given tetanus/diphtheria/pertussis, acel(Tdap) 4 09/20/12 Given 1Result Comment: [05/28/2017] [facility] [id number] 2Location History: [facility] 3Result Comment: [facility]05/28/2017[facility] [phone] 4Admin Note: vis given Medications LaMICtal 150 [...] 3 Refills, Maintenance, 09/13/19 9:47:00 EST, Tablet, [facility] #[id number], 163, cm, 09/13/19 8:58:00 EST, Height Start Date: 09/13/19 Status: Ordered ProAir HFA 90 mcg/inh inhalation aerosol with adapter 2, puffs, Inhalation, Every 4 hours, PRN, , cough, or SOB, # 1 each, Refills 0, Tot. Refills 0, Maintenance, 09/27/19 12:24:00 EST, Aerosol, Route to Pharmacy Electronically, [id number], [facility] #[id number], 163, cm,... Start Date: 09/27/19 Stop Date: [...]
--- OUTSIDE RECORDS SUMMARY | 2023-02-26 04:06 | XMS_ITS | Continuity of Care Document ---
Author Name Unknown Organization [facility] Address [address] [place] [address]- Care Team Providers Care Ordnance Officer Name Role Phone Beth Eller NP Primary Care Physician En[place] [facility] Date(s): 10/31/21 - 11/07/21 [facility] [address] [place] [address]- Encounter Diagnosis Coccydynia(Discharge Diagnosis) - 10/31/21 Bipolar disorder(Discharge Diagnosis) - 10/31/21 At risk for sexually transmitted disease due to unprotected sex(Discharge Diagnosis) - 10/31/21 Attending Physician: Beth Eller NP Allergies, Adverse Reactions, Alerts Substance Reaction Severity Status ibuprofen eye swelling, hives, pruritis Active Immunizations Given and Recorded Vaccine Date Status Refusal Reason hepatitis B adult vaccine 1 05/28/17 Given hepatitis B adult vaccine 2, 3 11/13/16 Recorded hepatitis B adult vaccine 10/02/16 Given tetanus/diphtheria/pertussis, acel(Tdap) 4 09/20/12 Given 1Result Comment: [05/28/2017] [facility] [id number] 2Location History: [facility] 3Result Comment: [facility]05/28/2017[facility] [phone] 4Admin Note: vis given Medications emtricitabine-tenofovir disoproxil [...] 12:24:00 EST, Aerosol, Route to Pharmacy Electronically, [id number], [facility] #[id number], 163, cm,... Start Date: 09/27/19 Stop Date: 10/27/19 Status: Ordered Problem List Condition Effective Dates Status Health Status Inform ant At risk for sexually transmi tted disease due to unprotected sex(Confirmed) Active Bipolar disorder(Confirmed) Active Exposure to HIV(Confirmed) Active Physical exam(Confirmed) Active PTSD (post-traumatic stress disorder)(Confirmed) Active Smoking(Confirmed) Active Diagnosis Diagnosis Type Effective Dates Health Status Clinical Service Informant Bipolar disorder Discharge Diagnosis 10/31/21 Coccydynia Discharge Diagnosis 10/31/21 At risk for sexually transmitted disease due to unprotected sex Discharge Diagnosis 10/31/21 Vital Signs Most recent to oldest [Reference Range]: 1 Height 163.00 cm (10/31/21 11:06 AM) Pulse Rate [55-90 bpm] 85 bpm (10/31/21 11:06 AM) Blood Pressure [90-138/55-84 mm Hg] 127/ 80mm Hg (10/31/21 11:06 AM) Respiratory Rate [16-30 br/min] 18 br/mi n (10/31/21 11:06 AM) Blood pressure sites Arm, right (10/31/21 11:06 AM) Social History Social History Type Response Smoking Status Current every day sm oker; Type: Cigarettes; Other: 1/2 PPD; entered on: 12/18/16 Sex
--- OUTSIDE RECORDS SUMMARY | 2023-02-26 04:06 | XMS_ITS | Continuity of Care Document ---
Author Name Unknown Organization [facility] Address [address] [place] [address]- Care Team Providers Care Lifter Driver Name Role Phone Chance BAEZA, Fatimah Ceja Primary Care Physician [place] [facility] [place](s[place] 05/21/21 - 06/20/21 [facility] [address] [place] [address]- Allergies, Adverse Reactions, Alerts Substance Reaction Severity Status ibuprofen eye swelling, hives, pruritis Active Immunizations Given and Recorded Vaccine Date Status Refusal Reason hepatitis B adult vaccine 1 05/28/17 Given hepatitis B adult vaccine 2, 3 11/13/16 Recorded hepatitis B adult vaccine 10/02/16 Given tetanus/diphtheria/pertussis, acel(Tdap) 4 09/20/12 Given 1Result Comment: [05/28/2017] [facility] [id number] 2Location History: [facility] 3Result Comment: [05/28/2017[facility] [phone] 4Admin Note: vis given Medications LaMICtal 150 [...] 3 Refills, Maintenance, 09/13/19 9:47:00 EST, Tablet, [facility] #[id number], 163, cm, 09/13/19 8:58:00 EST, Height Start Date: 09/13/19 Status: Ordered ProAir HFA 90 mcg/inh inhalation aerosol with adapter 2, puffs, Inhalation, Every 4 hours, PRN, , cough, or SOB, # 1 each, Refills 0, Tot. Refills 0, Maintenance, 09/27/19 12:24:00 EST, Aerosol, Route to Pharmacy Electronically, [id number], [facility] #[id number], 163, cm,... Start Date: 09/27/19 Stop Date: [...]
--- OUTSIDE RECORDS SUMMARY | 2023-02-26 04:06 | XMS_ITS | Continuity of Care Document ---
Author Name Unknown Organization [facility] Address [address] [place] [address]- Care Team Providers Care Roof Fitter Name Role Phone Chance BAEZA, Fatimah Ceja Primary Care Physician [place] [facility] [place] [place] [id number] Date(s): 02/22/20 - 03/23/20 [facility] [address] [place] [address]- [facility] Attending Physician: Airam Darden DO Referring Physician: Fatimah Fletcher NP Allergies, Adverse Reactions, Alerts Substance Reaction Severity Status ibuprofen eye swelling, hives, pruritis Active Immunizations Given and Recorded Vaccine Date Status Refusal Reason hepatitis B adult vaccine 1 05/28/17 Given hepatitis B adult vaccine 2, 3 11/13/16 Recorded hepatitis B adult vaccine 10/02/16 Given tetanus/diphtheria/pertussis, acel(Tdap) 4 09/20/12 Given 1Result Comment: [05/28/2017] [facility] [phone] 2Location History: [facility] 3Result Comment: [05/28/2017] [facility] [phone] 4Admin Note: vis given Medications Chantix Continuing Month 1 mg oral tablet 1 tablet = 1 mg, By Mouth, 2 times a day, # 56 tablet, 0 Refills, Acute 04/06/20 13:03:00 EDT, 03/05/20 13:03:00 EDT, Tablet, [facility] #[id number], 163, cm, 02/22/20 13:21:00 EDT, Height, 81.818, kg, 02/22/20 13:21:00 EDT, Dry Weight Start Date: 03/05/20 Stop Date: 04/06/20 Status: Ordered LaMICtal 25 mg oral tablet 25 mg, 1, tablet, By Mouth, 2 times a day, Refills 0, Maintenance, 09/13/19 9:01:00 EST Start Date: 09/13/19 Status: Ordered norethindrone 0.35 mg oral tablet 1 tablet = 0.35 mg, By Mouth, Daily, # 84 tablet, 3 Refills, Maintenance, 09/13/19 9:47:00 EST, Tablet, [facility] #[id number], 163, cm, 09/13/19 8:58:00 EST, Height Start Date: 09/13/19 Status: Ordered ProAir HFA 90 mcg/inh inhalation aerosol with adapter 2, puffs, Inhalation, Every 4 hours, PRN, , cough, or SOB, # 1 each, Refills 0, Tot. Refills 0, Maintenance, 09/27/19 12:24:00 EST, Aerosol, Route to Pharmacy Electronically, [id number], [facility] #[id number], 163, cm,... Start Date: 09/27/19 Stop Date: 10/27/19 Status: Ordered Problem List Condition Effective Dates Status Health Status Inform ant At risk for sexually transmi tted disease due to unprotected sex(Confirmed) Active Bipolar disorder(Confirmed) Active Physical exam(Confirmed) Active PTSD (post-traumatic stress disorder)(Confirmed) Active Smoking(Confirmed) Active Vital Signs Most recent to oldest [Reference Range]: 1 Height 163.00 cm (02/22/20 1:21 PM) Oxygen Saturation [94-100 %] 100 % (02/22/20 1:21 PM) Pulse Rate [55-90 bpm] 66 bpm (02/22/20 1:21 PM) Blood Pressure [90-138/55-84 mm Hg] 114/ 61mm Hg (02/22/20 1:21 PM) Respiratory Rate [16-30 br/min] 25 br/mi n (02/22/20 1:21 PM) Temperature [96.8-100.4 DegF] 98.6 DegF (02/22/20 1:21 PM) Mode of Delivery (Oxygen) Room air (02/22/20 1:21 PM) Blood pressure sites Arm, right (02/22/20 1:21 PM) Temperature Route Temporal (7/30/20 1:21 PM) Dry Weight 81.818 kg (02/22/20 1:21 PM) Weight Obtained Via Standing scale (02/22/20 1:21 PM) Social History Social History Type Response Smoking Status Current every day sarah juarez; Type: Cigarettes; Other: 1/2 PPD; entered on: 12/18/16 Sex
--- OUTSIDE RECORDS SUMMARY | 2023-02-26 04:06 | XMS_ITS | Continuity of Care Document ---
Author Name Unknown Organization [facility] Address [address] [place] [address]- Care Team Providers Care Client Services Director Name Role Phone Chance BAEZA, Fatimah Ceja Primary Care Physician Encounter [facility] [place] Date(s): 07/31/21 - 08/30/21 [facility] [address] [place] [address]- Attending Physician: Esau Colunga Admitting Physician: Admtr, Ar8 Referring Physician: Admtr, Ar8 Allergies, Adverse Reactions, Alerts Substance Reaction Severity Status ibuprofen eye swelling, hives, pruritis Active Immunizations Given and Recorded Vaccine Date Status Refusal Reason hepatitis B adult vaccine 1 05/28/17 Given hepatitis B adult vaccine 2, 3 11/13/16 Recorded hepatitis B adult vaccine 10/02/16 Given tetanus/diphtheria/pertussis, acel(Tdap) 4 09/20/12 Given 1Result Comment: [05/28/2017] [facility] [id number] 2Location History: [facility] 3Result Comment: [05/28/2017] [facility] [phone] 4Admin Note: vis given Medications emtricitabine-tenofovir disoproxil [...] 3 Refills, Maintenance, 09/13/19 9:47:00 EST, Tablet, [facility] #[id number], 163, cm, 09/13/19 8:58:00 EST, Height Start Date: 09/13/19 Status: Ordered ProAir HFA 90 mcg/inh inhalation aerosol with adapter 2, puffs, Inhalation, Every 4 hours, PRN, , cough, or SOB, # 1 each, Refills 0, Tot. Refills 0, Maintenance, 09/27/19 12:24:00 EST, Aerosol, Route to Pharmacy Electronically, [id number], [facility] #[id number], 163, cm,... Start Date: 09/27/19 Stop Date: 10/27/19 Status: Ordered raltegravir 400 mg oral tablet 1 tablet = 400 mg, By Mouth, 2 times a day, # 52 tablet, 0 Refills, Maintenance, 07/28/21 8:30:00 EST, Tablet, [facility]/pharmacy #[id number], Partial fill upon patient request if the [...]
--- OUTSIDE RECORDS SUMMARY | 2023-02-26 04:06 | XMS_ITS | Continuity of Care Document ---
Author Name Unknown Organization [facility] Address [address] [place] [address]- Care Team Providers Care Well Treatment Offsider Name Role Phone Chance BAEZA, Fatimah Ceja Primary Care Physician Encounter [facility] [place] Date(s): 04/01/21 - 05/01/21 [facility] [address] [place] [address]- Allergies, Adverse Reactions, Alerts Substance Reaction Severity Status ibuprofen eye swelling, hives, pruritis Active Immunizations Given and Recorded Vaccine Date Status Refusal Reason hepatitis B adult vaccine 1 05/28/17 Given hepatitis B adult vaccine 2, 3 11/13/16 Recorded hepatitis B adult vaccine 10/02/16 Given tetanus/diphtheria/pertussis, acel(Tdap) 4 09/20/12 Given 1Result Comment: [05/28/2017] [facility] [id number] 2Location History: [facility] 3Result Comment: [05/28/2017[facility] [phone] 4Admin Note: vis given Medications LaMICtal 150 [...] 3 Refills, Maintenance, 09/13/19 9:47:00 EST, Tablet, [facility] #[id number], 163, cm, 09/13/19 8:58:00 EST, Height Start Date: 09/13/19 Status: Ordered ProAir HFA 90 mcg/inh inhalation aerosol with adapter 2, puffs, Inhalation, Every 4 hours, PRN, , cough, or SOB, # 1 each, Refills 0, Tot. Refills 0, Maintenance, 09/27/19 12:24:00 EST, Aerosol, Route to Pharmacy Electronically, [id number], [facility] #[id number], 163, cm,... Start Date: 09/27/19 Stop Date: [...]
--- OUTSIDE RECORDS SUMMARY | 2023-02-26 04:06 | XMS_ITS | Continuity of Care Document ---
Author Name Unknown Organization [facility] Address [address] [place] [address]- Care Team Providers Care Distributor Cleaner Name Role Phone Joe Garcia DO Primary Care Physician Encounter [facility] Date(s): 09/01/22 - 09/08/22 [facility] [address] [place] [address]- Encounter Diagnosis Hidradenitis suppurativa(Discharge Diagnosis) - 09/01/22 Obesity (BMI 30-39.9)(Discharge Diagnosis) - 09/01/22 Bipolar disorder(Discharge Diagnosis) - 09/01/22 At risk for sexually transmitted disease due to unprotected sex(Discharge Diagnosis) - 09/01/22 Attending Physician: Joe Garcia DO Allergies, Adverse Reactions, Alerts Substance Reaction Severity Status ciprofloxacin Active ibuprofen eye swelling, hives, pruritis Active Immunizations Given and Recorded Vaccine Date Status Refusal Reason hepatitis B adult vaccine 1 05/28/17 Given hepatitis B adult vaccine 2, 3 11/13/16 Recorded hepatitis B adult vaccine 10/02/16 Given tetanus/diphtheria/pertussis, acel(Tdap) 4 09/20/12 Given 1Result Comment: [05/28/2017] [facility] [id number] 2Location History: [facility] 3Result Comment: [05/28/2017] [facility] [phone] 4Admin Note: vis given Medications clindamycin 1% topical lotion 1 application, Topically, 2 times a day, # 60 mL, 6 Refills, Maintenance, 09/01/22 8:45:00 EST, Lotion, [facility] #[id number], Partial fill upon patient request if the [...] 12:24:00 EST, Aerosol, Route to Pharmacy Electronically, [id number], [facility] #[id number], 163, cm,... Start Date: 09/27/19 Stop Date: [...] stress disorder) Confirmed Active Smoking Confirmed Active Diagnosis Diagnosis Type Effective Dates Health Status Clinical Service Informant Hidradenitis suppurativa Discharge Diagnosis 09/01/22 Obesity (BMI 30-39.9) Discharge Diagnosis 09/01/22 Bipolar disorder Discharge Diagnosis 09/01/22 At risk for sexually transmitted disease due to unprotected sex Discharge Diagnosis 09/01/22 Vital Signs Most recent to oldest [Reference Range]: 1 Height 163.00 cm (09/01/22 8:23 AM) Weight 91 kg (09/01/22 8:23 AM) Oxygen Saturation [94-100 %] 95 % (09/01/22 8:23 AM) Pulse Rate [55-90 bpm] 87 bpm (09/01/22 8:23 AM) Body Mass Index [18.5-24.99 kg/m2] 34.25 kg/m2 *>HHI* (09/01/22 8:23 AM) Blood Pressure [90-138/55-84 mm Hg] 116/ 78mm Hg (09/01/22 8:23 AM) Respiratory Rate [16-30 br/min] 16 br/mi n (09/01/22 8:23 AM) Mode of Delivery (Oxygen) Room air (09/01/22 8:23 AM) Blood pressure sites Arm, left (09/01/22 8:23 AM) Weight Obtained Via Patient/family state d (09/01/22 8:23 AM) Social History Social History Type Response Smoking Status Current every day sm oker; Type: Cigarettes; Other: 1/2 PPD; entered on: 12/18/16 Sex Note * Yamile Martini: PERFORM, SIGN, VERIFY Event Display: Patient Education/Instruction Authored Date: [id number] [facility] Clinical Summary Name KATIE LOPEZ Age 41 Years 1980 PCP Joe Garcia DO PCP Visit Date 09/01/2022 08:15:00 Additional Instructions: Scheduled Appointments?? Future Appointments ?No Future Appointments Scheduled Follow-Up Instructions ?? With: Address: When: PLEASE CONTACT THE OFFICE IN DECEMBER/JANUARY TO SCHEDULE PHYSICAL FOR AFTER 09/02/[address] GARCIA With: Address: When: REMINDER PLACED IN PATIENTS ACCOUNT THAT PT DUE FOR PHYSICAL WITH DR GARCIA AFTER 09/02/2023 With: Address: When: one year cpe with me Diagnosis Other specified personal risk factors, not elsewhere classified; Obesity, unspecified; Hidradenitissuppurativa; Bipolar disorder, unspecified Medications: Please continue your medications until treatment is completed or stopped by your provider. Discuss any questions related to medications with your provider. New Medications [facility] #[id number], [address], [place] [id number], [phone] Clindamycin Topical (clindamycin 1% topical lotion) 1 uri Topically twice a day. Refills: 6. Next Dose: Medications to Continue with No Changes These medications were not printed or sent to your pharmacy Albuterol (ProAir HFA 90 mcg/inh inhalation aerosol with adapter) 2 puff(s) Inhalation every 4 hours as needed Wheezing/Shortness of Breath for 30 Days. , cough, or SOB. Refills: 0. Next Dose: Emtricitabine-Tenofovir (emtricitabine-tenofovir disoproxil 200 mg-300 mg oral tablet) Next Dose: Lamotrigine (LaMICtal 150 mg oral tablet) 1 tab(s) Oral twice a day. Next Dose: Lamotrigine (LaMICtal 25 mg oral tablet) 1 tab(s) Oral twice a day. Next Dose: Allergy Info:?? ibuprofen; ciprofloxacin Medications Given This Visit Future Orders ?No future orders Vital Signs Height 163.00 cm Weight 91 kg BMI 34.25 kg/m2 Blood Pressure 116 mm Hg/78 mm Hg Temperature Pulse Rate 87 bpm Respiratory Rate 16 br/min 02 Sat Mode of Delivery 95 %/Room air You can now view a summary of your hospital visit from the comfort of your home through a free online portal called [employer]. [employer] is a website that allows you to securely view your medical information including discharge summary, medications and follow-up visits. ??You can alsosend a secure electronic message to your doctor???s office to request appointments, renew medications or just ask a question. You can enroll at [email or web address] or register during your next office visit. Disclaimer:?? The information provided is of a general nature and is intended to be used in conjunction with the recommendations and advice of your health care practitioner. ??Every effort has been made to ensure that the information provided is accurate and complete at the time it is provided to you however, as your needs change, or, as new ??information becomes available, different or additional instructions may be required. If you have questions, please consult with your primary care provider or pharmacist, as appropriate. ??This information is not intended to serve as substitution for assessment and evaluation by a qualified health care provider. If you do not have a primary care provider, you may find a [facility] provider by calling [facility] at [phone]. For information about the plan of care including goals and instructions for your diagnosis, please see the patient education orders section of this document. Patient Education Materials?? The content of this educational material or handout may have been modified, supplemented, or adapted from its original content and format to support your individualized medical care. Patient Care team information Care Team Personnel Name: Joe Garcia DO Position: S Primary Care Physician Member Role: PCP Address: Address: [address] [place] [address]- Care Team Related Persons Name: LAUREN WERO
--- OUTSIDE RECORDS SUMMARY | 2023-02-26 04:07 | XMS_ITS | Continuity of Care Document ---
Author Name Unknown Organization [facility] Address [address] [place] [address]- Care Team Providers Care Bankruptcy Legal Assistant Name Role Phone Chance BAEZA, Fatimah Ceja Primary Care Physician Encounter [facility] [place] R [id number] Date(s): 09/27/19 - 10/07/19 [facility] [address] [place] [address]- [facility] Attending Physician: AdmScott you8 Admitting Physician: Admtr, Ar8 Referring Physician: Admtr, Ar8 Allergies, Adverse Reactions, Alerts Substance Reaction Severity Status ibuprofen eye swelling, hives, pruritis Active Immunizations Given and Recorded Vaccine Date Status Refusal Reason hepatitis B adult vaccine 1 05/28/17 Given hepatitis B adult vaccine 2, 3 11/13/16 Recorded hepatitis B adult vaccine 10/02/16 Given tetanus/diphtheria/pertussis, acel(Tdap) 4 09/20/12 Given 1Result Comment: [05/28/2017] [facility] [id number] 2Location History: [facility] 3Result Comment: [05/28/2017] [facility] [phone] 4Admin Note: vis given Medications LaMICtal 25 mg oral tablet 25 mg, 1, tablet, By Mouth, 2 times a day, Refills 0, Maintenance, 09/13/19 9:01:00 EST Start Date: 09/13/19 Status: Ordered norethindrone 0.35 mg oral tablet 1 tablet = 0.35 mg, By Mouth, Daily, # 84 tablet, 3 Refills, Maintenance, 09/13/19 9:47:00 EST, Tablet, [facility] #[id number], 163, cm, 09/13/19 8:58:00 EST, Height Start Date: 09/13/19 Status: Ordered ProAir HFA 90 mcg/inh inhalation aerosol with adapter 2, puffs, Inhalation, Every 4 hours, PRN, , cough, or SOB, # 1 each, Refills 0, Tot. Refills 0, Maintenance, 09/27/19 12:24:00 EST, Aerosol, Route to Pharmacy Electronically, [id number], [facility] #[id number], 163, cm,... Start Date: 09/27/19 Stop Date: [...]
--- OUTSIDE RECORDS SUMMARY | 2023-02-26 04:07 | XMS_ITS | Continuity of Care Document ---
Author Name Unknown Organization [facility] Address [address] [place] [address]- Care Team Providers Care Tank Filler Name Role Phone Joe Owen DO Primary Care Physician Encounter [facility] Date(s): 11/25/22 - 12/25/22 [facility] [address] [place] [address]- Allergies, Adverse Reactions, Alerts Substance Reaction Severity Status ciprofloxacin Active ibuprofen eye swelling, hives, pruritis Active Immunizations Given and Recorded Vaccine Date Status Refusal Reason hepatitis B adult vaccine 1 05/28/17 Given hepatitis B adult vaccine 2, 3 11/13/16 Recorded hepatitis B adult vaccine 10/02/16 Given tetanus/diphtheria/pertussis, acel(Tdap) 4 09/20/12 Given 1Result Comment: [05/28/2017] [facility] [id number] [facility] 3Result Comment: [05/28/2017] [facility] [phone] 4Admin Note: vis given Medications buPROPion 100 mg/12 hours (SR) oral tablet, extended release TAKE 1 TABLET BY MOUTH EVERY MORNING Start Date: 11/26/22 Status: Ordered clindamycin 1% topical lotion 1 application, Topically, 2 times a day, # 60 mL, 6 Refills, Maintenance, 09/01/22 8:45:00 EST, Lotion, [facility] #[id number], Partial fill upon patient request if the [...] Refills, Soft Stop, 10/29/22 14:37:00 EDT, Tablet, [facility] #[id number], Partial fill upon patient request if the prescription is for a schedule II opioid drug., 163, cm, 10/29/22 14:09:00 EDT, Height Start Date: 10/29/22 Status: Ordered ProAir HFA 90 mcg/inh inhalation aerosol with adapter 2, puffs, Inhalation, Every 4 hours, PRN, , cough, or SOB, # 1 each, Refills 0, Tot. Refills 0, Maintenance, 09/27/19 12:24:00 EST, Aerosol, Route to Pharmacy Electronically, [id number], [facility] #[id number], 163, cm,... Start Date: 09/27/19 Stop Date: [...] Team Personnel Name: Joe Owen DO Position: [facility] Physician - Primary Care Member Role: PCP Address: Address: [address] [place] [address]- Care Team Related Persons Name: NO, ONE
--- OUTSIDE RECORDS SUMMARY | 2023-02-26 04:07 | XMS_ITS | Continuity of Care Document ---
Author Name Unknown Organization [facility] Address [address] [place] [address]- Care Team Providers Care Thermoforming Operator Name Role Phone Chance BAEZA, Fatimah Ceja Primary Care Physician Encounter [facility] Date(s): 09/15/19 - 10/22/19 [facility] [address] [place] [address]- [facility] Attending Physician: Fatimah Fletcher NP Allergies, Adverse Reactions, Alerts Substance Reaction Severity Status ibuprofen eye swelling, hives, pruritis Active Immunizations Given and Recorded Vaccine Date Status Refusal Reason hepatitis B adult vaccine 1 05/28/17 Given hepatitis B adult vaccine 2, 3 11/13/16 Recorded hepatitis B adult vaccine 10/02/16 Given tetanus/diphtheria/pertussis, acel(Tdap) 4 09/20/12 Given 1Result Comment: [05/28/2017] [facility] 12715-575-11 2Location History: [facility] 3Result Comment: [05/28/2017[facility] [phone] 4Admin Note: vis given Medications LaMICtal 25 mg oral tablet 25 mg, 1, tablet, By Mouth, 2 times a day, Refills 0, Maintenance, 09/13/19 9:01:00 EST Start Date: 09/13/19 Status: Ordered norethindrone 0.35 mg oral tablet 1 tablet = 0.35 mg, By Mouth, Daily, # 84 tablet, 3 Refills, Maintenance, 09/13/19 9:47:00 EST, Tablet, [facility] #[id number], 163, cm, 09/13/19 8:58:00 EST, Height Start Date: 09/13/19 Status: Ordered ProAir HFA 90 mcg/inh inhalation aerosol with adapter 2, puffs, Inhalation, Every 4 hours, PRN, , cough, or SOB, # 1 each, Refills 0, Tot. Refills 0, Maintenance, 09/27/19 12:24:00 EST, Aerosol, Route to Pharmacy Electronically, [id number], [facility] #[id number], 163, cm,... Start Date: 09/27/19 Stop Date: 10/27/19 Status: Ordered Problem List Condition Effective Dates Status Health Status Inform ant At risk for sexually transmi tted disease due to unprotected sex(Confirmed) Active Bipolar disorder(Confirmed) Active Physical exam(Confirmed) Active PTSD (post-traumatic stress disorder)(Confirmed) Active Smoking(Confirmed) Active Vital Signs Most recent to oldest [Reference Range]: 1 Height 163.00 cm (09/22/19 8:26 AM) Weight 81.7 kg (09/22/19 8:26 AM) Oxygen Saturation [94-100 %] 98 % (09/22/19 8:26 AM) Pulse Rate [55-90 bpm] 72 bpm (09/22/19 8:26 AM) Body Mass Index [18.5-24.99] 30.75 *>HHI* (09/22/19 8:26 AM) Blood Pressure [90-138/55-84 mm Hg] 128/ 62mm Hg (09/22/19 8:26 AM) Respiratory Rate [16-30 br/min] 24 br/mi n (09/22/19 8:26 AM) Blood pressure sites Arm, right (09/22/19 8:26 AM) Social History Social History Type Response Smoking Status Current every day sarah juarez; Type: Cigarettes; Other: 1/2 PPD; entered on: 12/18/16 Sex
--- OUTSIDE RECORDS SUMMARY | 2023-02-26 04:07 | XMS_ITS | Continuity of Care Document ---
Author Name Unknown Organization [facility] Address [address] [place] [address]- Care Team Providers Care Sewing Machine Repairer Helper Name Role Phone Chance BAEZA, Fatimah Ceja Primary Care Physician Encounter [facility] Date(s): 05/26/21 - 06/25/21 [facility] [address] [place] [address]- Allergies, Adverse Reactions, Alerts Substance Reaction Severity Status ibuprofen eye swelling, hives, pruritis Active Immunizations Given and Recorded Vaccine Date Status Refusal Reason hepatitis B adult vaccine 1 05/28/17 Given hepatitis B adult vaccine 2, 3 11/13/16 Recorded hepatitis B adult vaccine 10/02/16 Given tetanus/diphtheria/pertussis, acel(Tdap) 4 09/20/12 Given 1Result Comment: [05/28/2017] [facility] [id number] 2Location History: [facility] [place] 3Result Comment: [05/28/2017] [facility] [phone] 4Admin Note: vis given Medications LaMICtal 150 [...] 3 Refills, Maintenance, 09/13/19 9:47:00 EST, Tablet, [facility] #[id number], 163, cm, 09/13/19 8:58:00 EST, Height Start Date: 09/13/19 Status: Ordered ProAir HFA 90 mcg/inh inhalation aerosol with adapter 2, puffs, Inhalation, Every 4 hours, PRN, , cough, or SOB, # 1 each, Refills 0, Tot. Refills 0, Maintenance, 09/27/19 12:24:00 EST, Aerosol, Route to Pharmacy Electronically, [id number], [facility] #[id number], 163, cm,... Start Date: 09/27/19 Stop Date: [...]
--- OUTSIDE RECORDS SUMMARY | 2023-02-26 04:07 | XMS_ITS | Continuity of Care Document ---
Author Name Unknown Organization [facility] Address [address] [place] [address]- Care Team Providers Care Occupational Health Manager Name Role Phone Chance BAEZA, Fatimah Ceja Primary Care Physician Encounter [facility] Date(s): 07/28/21 - 08/04/21 [facility] [address] [place] [address]- Encounter Diagnosis STD exposure(Discharge Diagnosis) - 07/28/21 Attending Physician: Julia Zhang MD Allergies, Adverse Reactions, Alerts Substance Reaction Severity Status ibuprofen eye swelling, hives, pruritis Active Immunizations Given and Recorded Vaccine Date Status Refusal Reason hepatitis B adult vaccine 1 05/28/17 Given hepatitis B adult vaccine 2, 3 11/13/16 Recorded hepatitis B adult vaccine 10/02/16 Given tetanus/diphtheria/pertussis, acel(Tdap) 4 09/20/12 Given 1Result Comment: [05/28/2017] [facility] [id number] 2Location History: [facility] 3Result Comment: [05/28/2017] [facility] [phone] 4Admin Note: vis given Medications emtricitabine-tenofovir disoproxil [...] 9:01:00 EST Start Date: 09/13/19 Status: Ordered metroNIDAZOLE 500 mg oral tablet 1 tablet = 500 mg, By Mouth, Every 12 hours, for 7 days, # 14 tablet, 0 Refills, Acute 08/07/21 13:28:00 EST, 07/31/21 13:28:00 EST, Tablet, [facility][id number], Partial fill upon patient request if the prescription is for a schedule II opioid... Start Date: 07/31/21 Stop Date: 08/07/21 Status: Ordered norethindrone 0.35 mg oral tablet 1 tablet = 0.35 mg, By Mouth, Daily, # 84 tablet, 3 Refills, Maintenance, 09/13/19 9:47:00 EST, Tablet, [facility][id number], 163, cm, 09/13/19 8:58:00 EST, Height Start Date: 09/13/19 Status: Ordered ProAir HFA 90 mcg/inh inhalation aerosol with adapter 2, puffs, Inhalation, Every 4 hours, PRN, , cough, or SOB, # 1 each, Refills 0, Tot. Refills 0, Maintenance, 09/27/19 12:24:00 EST, Aerosol, Route to Pharmacy Electronically, [id number], [facility] #[id number], 163, cm,... Start Date: 09/27/19 Stop Date: 10/27/19 Status: Ordered raltegravir 400 mg oral tablet 1 tablet = 400 mg, By Mouth, 2 times a day, # 52 tablet, 0 Refills, Maintenance, 07/28/21 8:30:00 EST, Tablet, [facility]acy #[id number], Partial fill upon patient request if [...] Diagnosis Diagnosis Type Effective Dates Health Status Cl inical Service Informant STD exposure Discharge Diagnosis 07/28/21 Vital Signs Most recent to oldest [Reference Range]: 1 Height 163.00 cm (07/28/21 7:44 AM) Social History Social History Type Response Smoking Status Current every day sm oker; Type: Cigarettes; Other: 1/2 PPD; entered on: 12/18/16 Sex
--- OUTSIDE RECORDS SUMMARY | 2023-02-26 04:07 | XMS_ITS | Continuity of Care Document ---
Author Name Unknown Organization [facility] Address [address] [place] [address]- Care Team Providers Care Production Cloth Cutter Name Role Phone Chance BAEZA, Fatimah Ceja Primary Care Physician Encounter [facility] Date(s): 03/04/20 - 04/03/20 [facility] [address] [place] [address]- [facility] Allergies, Adverse Reactions, Alerts Substance Reaction Severity Status ibuprofen eye swelling, hives, pruritis Active Immunizations Given and Recorded Vaccine Date Status Refusal Reason hepatitis B adult vaccine 1 05/28/17 Given hepatitis B adult vaccine 2, 3 11/13/16 Recorded hepatitis B adult vaccine 10/02/16 Given tetanus/diphtheria/pertussis, acel(Tdap) 4 09/20/12 Given 1Result Comment: [05/28/2017] [facility] [id number] 2Location History: [facility] [place] 3Result Comment: [05/28/2017] [facility] [phone] 4Admin Note: vis given Medications Chantix Continuing Month 1 mg oral tablet 1 tablet = 1 mg, By Mouth, 2 times a day, # 56 tablet, 0 Refills, Acute 04/06/20 13:03:00 EDT, 03/05/20 13:03:00 EDT, Tablet, [facility] #[id number], 163, cm, 02/22/20 13:21:00 EDT, Height, 81.818, [...] 3 Refills, Maintenance, 09/13/19 9:47:00 EST, Tablet, [facility] #[id number], 163, cm, 09/13/19 8:58:00 EST, Height Start Date: 09/13/19 Status: Ordered ProAir HFA 90 mcg/inh inhalation aerosol with adapter 2, puffs, Inhalation, Every 4 hours, PRN, , cough, or SOB, # 1 each, Refills 0, Tot. Refills 0, Maintenance, 09/27/19 12:24:00 EST, Aerosol, Route to Pharmacy Electronically, [id number], [facility] #[id number], 163, cm,... Start Date: 09/27/19 Stop Date: [...]
--- OUTSIDE RECORDS SUMMARY | 2023-02-26 04:07 | XMS_ITS | Continuity of Care Document ---
Author Name Unknown Organization [facility] Address [address] [place] [address]- Care Team Providers Care Fire Eater Name Role Phone Daphnie BAEZA, Beth Serrano Primary Care Physician [phone] Encounter [facility] Date(s): 02/26/22 - 03/05/22 [facility] [address] [place] [address]- Encounter Diagnosis Vaginal discharge(Discharge Diagnosis) - 02/26/22 Genital lesion, female(Discharge Diagnosis) - 02/26/22 Attending Physician: Annabel Ronquillo NP Allergies, Adverse Reactions, Alerts Substance Reaction Severity Status ciprofloxacin Active ibuprofen eye swelling, hives, pruritis Active Immunizations Given and Recorded Vaccine Date Status Refusal Reason hepatitis B adult vaccine 1 05/28/17 Given hepatitis B adult vaccine 2, 3 11/13/16 Recorded hepatitis B adult vaccine 10/02/16 Given tetanus/diphtheria/pertussis, acel(Tdap) 4 09/20/12 Given 1Result Comment: [05/28/2017] [facility] [id number] 2Location History: [facility] 3Result Comment: [05/28/2017] [facility] [phone] 4Admin Note: vis given Medications emtricitabine-tenofovir disoproxil [...] 12:24:00 EST, Aerosol, Route to Pharmacy Electronically, [id number], [facility] #[id number], 163, cm,... Start Date: 09/27/19 Stop Date: [...] Dates Health Status Cl inical Service Informant Vaginal discharge Discharge Diagnosis 02/26/22 Genital lesion, female Discharge Diagnosis 02/26/22 Vital Signs Most recent to oldest [Reference Range]: 1 Height 163.00 cm (02/26/22 11:09 AM) Weight 84.5 kg (02/26/22 11:09 AM) Oxygen Saturation [94-100 %] 99 % (02/26/22 11:09 AM) Pulse Rate [55-90 bpm] 55 bpm (02/26/22 11:09 AM) Body Mass Index [18.5-24.99] 31.8 *>HHI* (02/26/22 11:09 AM) Blood Pressure [90-138/55-84 mm Hg] 114/ 71mm Hg (02/26/22 11:09 AM) Respiratory Rate [16-30 br/min] 18 br/mi n (02/26/22 11:09 AM) Blood pressure sites Arm, left (02/26/22 11:09 AM) Weight Obtained Via Standing scale (02/26/22 11:09 AM) Social History Social History Type Response Smoking Status Current every day sarah juarez; Type: Cigarettes; Other: 1/2 PPD; entered on: 12/18/16 Sex
--- OUTSIDE RECORDS SUMMARY | 2023-02-26 04:07 | XMS_ITS | Continuity of Care Document ---
Author Name Unknown Organization [facility] Address [address] [place] [address]- Care Team Providers Care Electron Beam Welder Name Role Phone Chance BAEZA, Fatimah Ceja Primary Care Physician Encounter [facility] Date(s): 09/13/19 - 09/20/19 [facility] [address] [place] [address]- [facility] Encounter Diagnosis Bipolar disorder(Discharge Diagnosis) - 09/13/19 At risk for sexually transmitted disease due to unprotected sex(Discharge Diagnosis) - 09/13/19 PTSD (post-traumatic stress disorder)(Discharge Diagnosis) - 09/13/19 Physical exam(Discharge Diagnosis) - 09/13/19 Smoking(Discharge Diagnosis) - 09/13/19 Contraceptive education(Discharge Diagnosis) - 09/13/19 Skin lesion of sternal region(Discharge Diagnosis) - 09/13/19 Attending Physician: Fatimah Fletcher NP Allergies, Adverse Reactions, Alerts Substance Reaction Severity Status ibuprofen eye swelling, hives, pruritis Active Immunizations Given and Recorded Vaccine Date Status Refusal Reason hepatitis B adult vaccine 1 05/28/17 Given hepatitis B adult vaccine 2, 3 11/13/16 Recorded hepatitis B adult vaccine 10/02/16 Given tetanus/diphtheria/pertussis, acel(Tdap) 4 09/20/12 Given 1Result Comment: [05/28/2017] [facility] [id number] 2Location History: [facility] [place] 3Result Comment: [05/28/2017] [facility] [phone] 4Admin Note: vis given Medications LaMICtal 25 mg oral tablet 25 mg, 1, tablet, By Mouth, 2 times a day, Refills 0, Maintenance, 09/13/19 9:01:00 EST Start Date: 09/13/19 Status: Ordered norethindrone 0.35 mg oral tablet 1 tablet = 0.35 mg, By Mouth, Daily, # 84 tablet, 3 Refills, Maintenance, 09/13/19 9:47:00 EST, Tablet, [facility] #[id number], 163, cm, 09/13/19 8:58:00 EST, Height Start Date: 09/13/19 Status: Ordered Problem List Condition Effective Dates Status Health Status Inform ant At risk for sexually transmi tted disease due to unprotected sex(Confirmed) Active Bipolar disorder(Confirmed) Active Physical exam(Confirmed) Active PTSD (post-traumatic stress disorder)(Confirmed) Active Smoking(Confirmed) Active Diagnosis Diagnosis Type Effective Dates Health Status Clinical Service Informant Bipolar disorder Discharge Diagnosis 09/13/19 At risk for sexually transmitted disease due to unprotected sex Discharge Diagnosis 09/13/19 PTSD (post-traumatic stress disorder) Discharge Diagnosis 09/13/19 Physical exam Discharge Diagnosis 09/13/19 Smoking Discharge Diagnosis 09/13/19 Contraceptive education Discharge Diagnosis 09/13/19 Skin lesion of sternal region Discharge Diagnosis 09/13/19 Vital Signs Most recent to oldest [Reference Range]: 1 Height 163.00 cm (09/13/19 8:58 AM) Weight 79.4 kg (09/13/19 8:58 AM) Oxygen Saturation [94-100 %] 98 % (09/13/19 8:58 AM) Pulse Rate [55-90 bpm] 87 bpm (09/13/19 8:58 AM) Body Mass Index [18.5-24.99] 29.88 *H* (09/13/19 8:58 AM) Blood Pressure [90-138/55-84 mm Hg] 108/ 68mm Hg (09/13/19 8:58 AM) Respiratory Rate [16-30 br/min] 148 br/m in *H* (09/13/19 8:58 AM) Temperature [96.8-100.4 DegF] 98.3 DegF (09/13/19 8:58 AM) Mode of Delivery (Oxygen) Room air (09/13/19 8:58 AM) Blood pressure sites Arm, right (09/13/19 8:58 AM) Temperature Route Oral (09/13/19 8:58 AM) Weight Obtained Via Patient/family state d (2/19/20 8:58 AM) Social History Social History Type Response Smoking Status Current every day sarah juarez; Type: Cigarettes; Other: 1/2 PPD; entered on: 12/18/16 Sex
--- OUTSIDE RECORDS SUMMARY | 2023-02-26 04:07 | XMS_ITS | Continuity of Care Document ---
Author Name Unknown Organization [facility] Address [address] [place] [address]- Care Team Providers Care Bakery Clerk Name Role Phone Chance BAEZA, Fatimah Ceja Primary Care Physician Encounter [facility] Date(s): 04/02/21 - 04/09/21 [facility] [address] [place] [address]- Encounter Diagnosis Folliculitis(Discharge Diagnosis) - 04/02/21 Attending Physician: Fatimah Fletcher NP Allergies, Adverse Reactions, Alerts Substance Reaction Severity Status ibuprofen eye swelling, hives, pruritis Active Immunizations Given and Recorded Vaccine Date Status Refusal Reason hepatitis B adult vaccine 1 05/28/17 Given hepatitis B adult vaccine 2, 3 11/13/16 Recorded hepatitis B adult vaccine 10/02/16 Given tetanus/diphtheria/pertussis, acel(Tdap) 4 09/20/12 Given 1Result Comment: [05/28/2017] [facility] [id number] 2Location History: [facility] 3Result Comment: [05/28/2017] [facility] [phone] 4Admin Note: vis given Medications doxycycline hyclate 100 mg oral tablet 1 tablet = 100 mg, By Mouth, Every 12 hours, for 10 days, # 20 tablet, 0 Refills, Acute 04/12/21 11:45:00 EDT, 04/02/21 11:45:00 EDT, Tablet, [facility] #[id number], Partial fill upon patient request if the prescription is for a schedule II opioi... Start Date: 04/02/21 Stop Date: 04/12/21 Status: Ordered LaMICtal 150 mg oral tablet [...] 9:01:00 EST Start Date: 09/13/19 Status: Ordered mupirocin 2% topical cream 1 application, Topically, 3 times a day, for 10 days, apply a thin film to affected area, # 30 Gm, 0 Refills, Acute 04/12/21 11:46:00 EDT, 04/02/21 11:46:00 EDT, Cream, [facility] #[id number], Partial fill upon patient request if the prescription... Start Date: 04/02/21 Stop Date: 04/12/21 Status: Ordered norethindrone 0.35 mg oral tablet 1 tablet = 0.35 mg, By Mouth, Daily, # 84 tablet, 3 Refills, Maintenance, 09/13/19 9:47:00 EST, Tablet, [facility] #[id number], 163, cm, 09/13/19 8:58:00 EST, Height Start Date: 09/13/19 Status: Ordered ProAir HFA 90 mcg/inh inhalation aerosol with adapter 2, puffs, Inhalation, Every 4 hours, PRN, , cough, or SOB, # 1 each, Refills 0, Tot. Refills 0, Maintenance, 09/27/19 12:24:00 EST, Aerosol, Route to Pharmacy Electronically, [id number], [facility] #[id number], 163, cm,... Start Date: 09/27/19 Stop Date: 10/27/19 Status: Ordered Problem List Condition Effective Dates Status Health Status Inform ant At risk for sexually transmi tted disease due to unprotected sex(Confirmed) Active Bipolar disorder(Confirmed) Active Physical exam(Confirmed) Active PTSD (post-traumatic stress disorder)(Confirmed) Active Smoking(Confirmed) Active Diagnosis Diagnosis Type Effective Dates Health Status Cl inical Service Informant Folliculitis Discharge Diagnosis 04/02/21 Vital Signs Most recent to oldest [Reference Range]: 1 Height 163.00 cm (04/02/21 10:37 AM) Weight 88.8 kg (04/02/21 10:37 AM) Oxygen Saturation [94-100 %] 98 % (04/02/21 10:37 AM) Pulse Rate [55-90 bpm] 70 bpm (04/02/21 10:37 AM) Body Mass Index [18.5-24.99] 33.42 *>HHI* (04/02/21 10:37 AM) Blood Pressure [90-138/55-84 mm Hg] 123/ 78mm Hg (04/02/21 10:37 AM) Respiratory Rate [16-30 br/min] 24 br/mi n (04/02/21 10:37 AM) Blood pressure sites Arm, right (04/02/21 10:37 AM) Social History Social History Type Response Smoking Status Current every day sarah juarez; Type: Cigarettes; Other: 1/2 PPD; entered on: 12/18/16 Sex
--- OUTSIDE RECORDS SUMMARY | 2023-02-26 04:07 | XMS_ITS | Continuity of Care Document ---
Author Name Unknown Organization [facility] Address [address] [place] [address]- Care Team Providers Care Realtime Reporter Name Role Phone Chance BAEZA, Fatimah Ceja Primary Care Physician Encounter [facility] Date(s): 08/19/21 - 09/18/21 [facility] [address] [place] [address]- Allergies, Adverse Reactions, Alerts Substance Reaction Severity Status ibuprofen eye swelling, hives, pruritis Active Immunizations Given and Recorded Vaccine Date Status Refusal Reason hepatitis B adult vaccine 1 05/28/17 Given hepatitis B adult vaccine 2, 3 11/13/16 Recorded hepatitis B adult vaccine 10/02/16 Given tetanus/diphtheria/pertussis, acel(Tdap) 4 09/20/12 Given 1Result Comment: [05/28/2017] [facility] 20831-345-76 2Location History: [facility] [place] 3Result Comment: [05/28/2017] [facility] [phone] 4Admin Note: vis given Medications emtricitabine-tenofovir disoproxil [...] 3 Refills, Maintenance, 09/13/19 9:47:00 EST, Tablet, [facility] #[id number], 163, cm, 09/13/19 8:58:00 EST, Height Start Date: 09/13/19 Status: Ordered ProAir HFA 90 mcg/inh inhalation aerosol with adapter 2, puffs, Inhalation, Every 4 hours, PRN, , cough, or SOB, # 1 each, Refills 0, Tot. Refills 0, Maintenance, 09/27/19 12:24:00 EST, Aerosol, Route to Pharmacy Electronically, [id number], [facility] #[id number], 163, cm,... Start Date: 09/27/19 Stop Date: 10/27/19 Status: Ordered raltegravir 400 mg oral tablet 1 tablet = 400 mg, By Mouth, 2 times a day, # 52 tablet, 0 Refills, Maintenance, 07/28/21 8:30:00 EST, Tablet, [facility]/pharmacy #[id number], Partial fill upon patient request if [...]
--- OUTSIDE RECORDS SUMMARY | 2023-02-26 04:07 | XMS_ITS | Continuity of Care Document ---
Author Name Unknown Organization [facility] Address [address] [place] [address]- Care Team Providers Care Berry Picker Name Role Phone Daphnie BAEZA, Beth Primary Care Physician En[place] [facility] Date(s): 06/15/22 - 06/22/22 [facility] [address] [place] [address]- Encounter Diagnosis Right kidney mass(Discharge Diagnosis) - 06/15/22 Hydronephrosis of left kidney(Discharge Diagnosis) - 06/15/22 Leukocytosis(Discharge Diagnosis) - 06/15/22 Gross hematuria(Discharge Diagnosis) - 06/15/22 Attending Physician: Julia Zhang MD Referring Physician: Annabel Ronquillo NP Allergies, Adverse Reactions, Alerts Substance Reaction Severity Status ciprofloxacin Active ibuprofen eye swelling, hives, pruritis Active Immunizations Given and Recorded Vaccine Date Status Refusal Reason hepatitis B adult vaccine 1 05/28/17 Given hepatitis B adult vaccine 2, 3 11/13/16 Recorded hepatitis B adult vaccine 10/02/16 Given tetanus/diphtheria/pertussis, acel(Tdap) 4 09/20/12 Given 1Result Comment: [05/28/2017] [facility] [id number] 2Location History: [facility] 3Result Comment: [05/28/2017] [facility] [phone] 4Admin Note: vis given Medications emtricitabine-tenofovir disoproxil [...] 12:24:00 EST, Aerosol, Route to Pharmacy Electronically, [id number], [facility] #[id number], 163, cm,... Start Date: 09/27/19 Stop Date: [...] Effective Dates Health Status Clinical Service Informant Right kidney mass Discharge Diagnosis 06/15/22 Hydronephrosis of left kidney Discharge Diagnosis 06/15/22 Leukocytosis Discharge Diagnosis 06/15/22 Gross hematuria Discharge Diagnosis 06/15/22 Vital Signs Most recent to oldest [Reference Range]: 1 Height 163.00 cm (06/15/22 2:16 PM) Weight 90.6 kg (06/15/22 2:16 PM) Oxygen Saturation [94-100 %] 98 % (06/15/22 2:16 PM) Pulse Rate [55-90 bpm] 88 bpm (06/15/22 2:16 PM) Body Mass Index [18.5-24.99 kg/m2] 34.1 kg/m2 *>HHI* (06/15/22 2:16 PM) Blood Pressure [90-138/55-84 mm Hg] 131/ 88mm Hg (06/15/22 2:16 PM) Respiratory Rate [16-30 br/min] 18 br/mi n (06/15/22 2:16 PM) Blood pressure sites Arm, right (06/15/22 2:16 PM) Weight Obtained Via Standing scale (06/15/22 2:16 PM) Social History Social History Type Response Smoking Status Current every day sarah juarez; Type: Cigarettes; Other: 1/2 PPD; entered on: 12/18/16 Sex Patient Care team information Care Team Personnel Name: Beth Eller NP Position: [facility] PCO Associate Professional Member Role: PCP Address: Address: [address] [place] [address] [place] [address]- Care Team Related Persons Name: NO, ONE
--- OUTSIDE RECORDS SUMMARY | 2023-02-26 04:07 | XMS_ITS | Continuity of Care Document ---
Author Name Unknown Organization [facility] Address [address] [place] [address]- Care Team Providers Care Psychological Tests Sales Agent Name Role Phone Chance BAEZA, Fatimah Ceja Primary Care Physician En[place] [facility] [place] Date(s): 07/31/21 - 08/07/21 [facility] [address] [place] [address]- Attending Physician: Airam Darden DO Referring Physician: [...] 1Result Comment: [05/28/2017] [facility] [id number] 2Location History: [facility] 3Result Comment: [05/28/2017] [facility] [phone] 4Admin Note: vis given Medications emtricitabine-tenofovir disoproxil [...] 3 Refills, Maintenance, 09/13/19 9:47:00 EST, Tablet, [facility] #[id number], 163, cm, 09/13/19 8:58:00 EST, Height Start Date: 09/13/19 Status: Ordered ProAir HFA 90 mcg/inh inhalation aerosol with adapter 2, puffs, Inhalation, Every 4 hours, PRN, , cough, or SOB, # 1 each, Refills 0, Tot. Refills 0, Maintenance, 09/27/19 12:24:00 EST, Aerosol, Route to Pharmacy Electronically, [id number], [facility] #[id number], 163, cm,... Start Date: 09/27/19 Stop Date: 10/27/19 Status: Ordered raltegravir 400 mg oral tablet 1 tablet = 400 mg, By Mouth, 2 times a day, # 52 tablet, 0 Refills, Maintenance, 07/28/21 8:30:00 EST, Tablet, [facility]/pharmacy #[id number], Partial fill upon patient request [...] oldest [Reference Range]: 1 Height 163.00 cm (07/31/21 12:38 PM) Oxygen Saturation [94-100 %] 99 % (07/31/21 12:38 PM) Pulse Rate [55-90 bpm] 73 bpm (07/31/21 12:38 PM) Blood Pressure [90-138/55-84 mm Hg] 142/ 90mm Hg *H* (07/31/21 12:38 PM) Respiratory Rate [16-30 br/min] 16 br/mi n (07/31/21 12:38 PM) Temperature [96.8-100.4 DegF] 98.0 DegF (07/31/21 12:38 PM) Mode of Delivery (Oxygen) Room air (07/31/21 12:38 PM) Blood pressure sites Arm, right (07/31/21 12:38 PM) Temperature Route Temporal (07/31/21 12:38 PM) Social History Social History Type Response Smoking Status Current every day sarah juarez; Type: Cigarettes; Other: 1/2 PPD; entered on: 12/18/16 Sex
--- OUTSIDE RECORDS SUMMARY | 2023-02-26 04:07 | XMS_ITS | Continuity of Care Document ---
Author Name Unknown Organization [facility] Address [address] [place] [address]- Care Team Providers Care Processing Lead Name Role Phone Joe Owen DO Primary Care Physician En[facility] Date(s): 09/01/22 - 10/01/22 [facility] [address] [place], [place] [address] Attending Physician: Esau Colunga Admitting Physician: [...] acel(Tdap) 4 09/20/12 Given 1Result Comment: [05/28/2017] [facility] [id number] 2Location History: [facility] 3Result Comment: [05/28/2017] [facility] [phone] 4Admin Note: vis given Medications clindamycin 1% topical lotion 1 application, Topically, 2 times a day, # 60 mL, 6 Refills, Maintenance, 09/01/22 8:45:00 EST, Lotion, [facility] #[id number], Partial fill upon patient request if the [...] 12:24:00 EST, Aerosol, Route to Pharmacy Electronically, [id number], [facility] #[id number], 163, cm,... Start Date: 09/27/19 Stop Date: [...] Team Personnel Name: Joe Owen DO Position: [facility] Primary Care Physician Member Role: PCP Address: Address: [address] [place] [address] Care Team Related Persons Name: NO, WERO
--- OUTSIDE RECORDS SUMMARY | 2023-02-26 04:07 | XMS_ITS | Continuity of Care Document ---
Author Name Unknown Organization [facility] Address [address] [place] [address]- Care Team Providers Care Information Security Director Name Role Phone Chance BAEZA, Fatimah Ceja Primary Care Physician En[facility] [place] ACCT R [id number] Date(s): 02/22/20 - 03/23/20 [facility] [address] [place] [address]- [facility] Attending Physician: Admtr, Ar8 Admitting Physician: Admtr, Ar8 Referring Physician: Admtr, Ar8 Allergies, Adverse Reactions, Alerts Substance Reaction Severity Status ibuprofen eye swelling, hives, pruritis Active Immunizations Given and Recorded Vaccine Date Status Refusal Reason hepatitis B adult vaccine 1 05/28/17 Given hepatitis B adult vaccine 2, 3 11/13/16 Recorded hepatitis B adult vaccine 10/02/16 Given tetanus/diphtheria/pertussis, acel(Tdap) 4 09/20/12 Given 1Result Comment: [05/28/2017] [facility] [id number] 2Location History: [facility] 3Result Comment: [facility]05/28/2017[facility] [phone] 4Admin Note: vis given Medications Chantix Continuing Month 1 mg oral tablet 1 tablet = 1 mg, By Mouth, 2 times a day, # 56 tablet, 0 Refills, Acute 04/06/20 13:03:00 EDT, 03/05/20 13:03:00 EDT, Tablet, [facility] #[id number], 163, cm, 02/22/20 13:21:00 EDT, Height, 81.818, [...] 3 Refills, Maintenance, 09/13/19 9:47:00 EST, Tablet, [facility] #[id number], 163, cm, 09/13/19 8:58:00 EST, Height Start Date: 09/13/19 Status: Ordered ProAir HFA 90 mcg/inh inhalation aerosol with adapter 2, puffs, Inhalation, Every 4 hours, PRN, , cough, or SOB, # 1 each, Refills 0, Tot. Refills 0, Maintenance, 09/27/19 12:24:00 EST, Aerosol, Route to Pharmacy Electronically, [id number], [facility] #[id number], 163, cm,... Start Date: 09/27/19 Stop Date: [...]
--- OUTSIDE RECORDS SUMMARY | 2023-02-26 04:07 | XMS_ITS | Continuity of Care Document ---
Author Name Unknown Organization [facility] Address [address] [place] [address]- Care Team Providers Care Compliance Associate Name Role Phone Daphnie BAEZA, Beth Serrano Primary Care Physician [phone] Encounter [facility] Date(s): 01/27/22 - 02/03/22 [facility] [address] [place] [address]- Attending Physician: Leigh Ayala MD Referring Physician: Beth Eller NP Allergies, Adverse Reactions, Alerts Substance Reaction Severity Status ciprofloxacin Active ibuprofen eye swelling, hives, pruritis Active Immunizations Given and Recorded Vaccine Date Status Refusal Reason hepatitis B adult vaccine 1 05/28/17 Given hepatitis B adult vaccine 2, 3 11/13/16 Recorded hepatitis B adult vaccine 10/02/16 Given tetanus/diphtheria/pertussis, acel(Tdap) 4 09/20/12 Given 1Result Comment: [05/28/2017] [facility] [id number] 2Location History: [facility] 3Result Comment: [05/28/2017] [facility] [phone] 4Admin Note: vis given Medications emtricitabine-tenofovir disoproxil [...] 12:24:00 EST, Aerosol, Route to Pharmacy Electronically, [id number], [facility] #[id number], 163, cm,... Start Date: 09/27/19 Stop Date: 10/27/19 Status: Ordered Problem List Condition Effective Dates Status Health Status Inform ant At risk for sexually transmi tted disease due to unprotected sex(Confirmed) Active Bipolar disorder(Confirmed) Active Exposure to HIV(Confirmed) Active Physical exam(Confirmed) Active Obese class I(Confirmed) Active PTSD (post-traumatic stress disorder)(Confirmed) Active Smoking(Confirmed) Active Vital Signs Most recent to oldest [Reference Range]: 1 2 Height 163.00 cm (01/28/22 9:09 AM) 163.00 cm (01/27/22 5:51 PM) Oxygen Saturation [94-100 %] 99 % (01/28/22 9:09 AM) 99 % (01/27/22 5:51 PM) Pulse Rate [55-90 bpm] 65 bpm (01/28/22 9:09 AM) 75 bpm (01/27/22 5:51 PM) Blood Pressure [90-138/55-84 mm Hg] 166/ 84mm Hg *H* (01/28/22 9:09 AM) 140/86mm Hg *H* (01/27/22 5:51 PM) Respiratory Rate [16-30 br/min] 18 br/mi n (01/28/22 9:09 AM) 18 br/min (01/27/22 5:51 PM) Temperature [96.8-100.4 DegF] 96.6 DegF *L* (01/28/22 9:09 AM) 96.8 DegF (01/27/22 5:51 PM) Mode of Delivery (Oxygen) Room air (01/28/22 9:09 AM) Room air (01/27/22 5:51 PM) Blood pressure sites Arm, right (01/28/22 9:09 AM) Arm, left (01/27/22 5:51 PM) Temperature Route Temporal (01/28/22 9:09 AM) Temporal (01/27/22 5:51 PM) Social History Social History Type Response Smoking Status Current every day sarah jaurez; Type: Cigarettes; Other: 1/2 PPD; entered on: 12/18/16 Sex
--- OUTSIDE RECORDS SUMMARY | 2023-02-26 04:07 | XMS_ITS | Continuity of Care Document ---
Author Name Unknown Organization [facility] Address [address] [place] [address]- Care Team Providers Care Production Line Assembler Name Role Phone Joe Owen DO Primary Care Physician [place] [facility] [place] Date(s): 10/16/22 - 11/15/22 [facility] [address] [place] [address]- Allergies, Adverse Reactions, Alerts Substance Reaction Severity Status ciprofloxacin Active ibuprofen eye swelling, hives, pruritis Active Immunizations Given and Recorded Vaccine Date Status Refusal Reason hepatitis B adult vaccine 1 05/28/17 Given hepatitis B adult vaccine 2, 3 11/13/16 Recorded hepatitis B adult vaccine 10/02/16 Given tetanus/diphtheria/pertussis, acel(Tdap) 4 09/20/12 Given 1Result Comment: [05/28/2017] [facility] [id number] 2Location History: [facility] [place] 3Result Comment: [05/28/2017] [facility] [phone] 4Admin Note: vis given Medications clindamycin 1% topical lotion 1 application, Topically, 2 times a day, # 60 mL, 6 Refills, Maintenance, 09/01/22 8:45:00 EST, Lotion, [facility] #[id number], Partial fill upon patient request if the [...] Refills, Soft Stop, 10/29/22 14:37:00 EDT, Tablet, [facility] #[id number], Partial fill upon patient request if the prescription is for a schedule II opioid drug., 163, cm, 10/29/22 14:09:00 EDT, Height Start Date: 10/29/22 Status: Ordered ProAir HFA 90 mcg/inh inhalation aerosol with adapter 2, puffs, Inhalation, Every 4 hours, PRN, , cough, or SOB, # 1 each, Refills 0, Tot. Refills 0, Maintenance, 09/27/19 12:24:00 EST, Aerosol, Route to Pharmacy Electronically, [id number], [facility] #[id number], 163, cm,... Start Date: 09/27/19 Stop Date: [...] Care Physician Member Role: PCP Address: Address: [address] [place] [address]- Care Team Related Persons Name: NO, ONE
--- OUTSIDE RECORDS SUMMARY | 2023-02-26 04:07 | XMS_ITS | Continuity of Care Document ---
Author Name Unknown Organization [facility] Address [address] [place] [address]- Care Team Providers Care Supply Chain Generalist Name Role Phone Chance BAEZA, Fatimah Ceja Primary Care Physician En[place] [facility] [place] Date(s): 01/01/21 - 01/31/21 [facility] [address] [place] [address]- Attending Physician: Esau Colunga Admitting Physician: AdmEsau you Referring Physician: AdmtrEsau Allergies, Adverse Reactions, Alerts Substance Reaction Severity Status ibuprofen eye swelling, hives, pruritis Active Immunizations Given and Recorded Vaccine Date Status Refusal Reason hepatitis B adult vaccine 1 05/28/17 Given hepatitis B adult vaccine 2, 3 11/13/16 Recorded hepatitis B adult vaccine 10/02/16 Given tetanus/diphtheria/pertussis, acel(Tdap) 4 09/20/12 Given 1Result Comment: [05/28/2017] [facility] 72901-924-03 2Location History: [facility] 3Result Comment: [05/28/2017] [facility] [phone] 4Admin Note: vis given Medications LaMICtal 25 mg oral tablet 25 mg, 1, tablet, By Mouth, 2 times a day, Refills 0, Maintenance, 09/13/19 9:01:00 EST Start Date: 09/13/19 Status: Ordered norethindrone 0.35 mg oral tablet 1 tablet = 0.35 mg, By Mouth, Daily, # 84 tablet, 3 Refills, Maintenance, 09/13/19 9:47:00 EST, Tablet, [facility] #[id number], 163, cm, 09/13/19 8:58:00 EST, Height Start Date: 09/13/19 Status: Ordered ProAir HFA 90 mcg/inh inhalation aerosol with adapter 2, puffs, Inhalation, Every 4 hours, PRN, , cough, or SOB, # 1 each, Refills 0, Tot. Refills 0, Maintenance, 09/27/19 12:24:00 EST, Aerosol, Route to Pharmacy Electronically, [id number], [facility] #[id number], 163, cm,... Start Date: 09/27/19 Stop Date: [...]
--- OUTSIDE RECORDS SUMMARY | 2023-02-26 04:07 | XMS_ITS | Continuity of Care Document ---
Author Name Unknown Organization [facility] Address [address] [place] [address]- Care Team Providers Care Game Engineer Name Role Phone Joe Owen DO Primary Care Physician [place] [facility] 10/27[place]22 - 11/26/22 [facility] [address] [place], [place] [address] Allergies, Adverse Reactions, Alerts Substance Reaction Severity Status ciprofloxacin Active ibuprofen eye swelling, hives, pruritis Active Immunizations Given and Recorded Vaccine Date Status Refusal Reason hepatitis B adult vaccine 1 05/28/17 Given hepatitis B adult vaccine 2, 3 11/13/16 Recorded hepatitis B adult vaccine 10/02/16 Given tetanus/diphtheria/pertussis, acel(Tdap) 4 09/20/12 Given 1Result Comment: [05/28/2017] [facility] 91288-860-30 2Location History: [facility] 3Result Comment: [05/28/2017] [facility] [phone] 4Admin Note: vis given Medications Bactrim DS 800 mg-160 mg oral tablet 1 tablet, By Mouth, 2 times a day, for 7 days, # 14 tablet, 0 Refills, Acute 12/03/22 11:58:00 EDT,11/26/22 11:58:00 EDT, Tablet, [facility] #[id number], Partial fill upon patient request if the prescription is for a schedule II opioid drug., 1... Start Date: 11/26/22 Stop Date: 12/03/22 Status: Ordered buPROPion 100 mg/12 hours (SR) oral tablet, extended release TAKE 1 TABLET BY MOUTH EVERY MORNING Start Date: 11/26/22 Status: Ordered clindamycin 1% topical lotion 1 application, Topically, 2 times a day, # 60 mL, 6 Refills, Maintenance, 09/01/22 8:45:00 EST, Lotion, [facility] #[id number], Partial fill upon patient request if the [...] Refills, Soft Stop, 10/29/22 14:37:00 EDT, Tablet, [facility] #[id number], Partial fill upon patient request if the prescription is for a schedule II opioid drug., 163, cm, 10/29/22 14:09:00 EDT, Height Start Date: 10/29/22 Status: Ordered nystatin 421088 u/ml oral suspension 5 mL = 500,000 units, By Mouth, 4 times a day, for 7 days, swish and swallow, # 140 mL, 0 Refills, Acute 12/03/22 11:56:00 EDT, 11/26/22 11:56:00 EDT, Suspension, [facility] #[id number], Partialfill upon patient request if the prescription is fo... Start Date: 11/26/22 Stop Date: 12/03/22 Status: Ordered ProAir HFA 90 mcg/inh inhalation aerosol with adapter 2, puffs, Inhalation, Every 4 hours, PRN, , cough, or SOB, # 1 each, Refills 0, Tot. Refills 0, Maintenance, 09/27/19 12:24:00 EST, Aerosol, Route to Pharmacy Electronically, [id number], [facility] #[id number], 163, cm,... Start Date: 09/27/19 Stop Date: [...] Care Physician Member Role: PCP Address: Address: [address] [place] [address]- Care Team Related Persons Name: NO, WERO
--- OUTSIDE RECORDS SUMMARY | 2023-02-26 04:07 | XMS_ITS | Continuity of Care Document ---
Author Name Unknown Organization [facility] Address [address] [place] [address]- Care Team Providers Care News Reporter Name Role Phone Daphnie BAEZA, Beth Serrano Primary Care Physician [phone] Encounter [facility] [place] Date(s): 11/03/21 - 12/03/21 [facility] [address] [place] [address]- Allergies, Adverse Reactions, Alerts Substance Reaction Severity Status ibuprofen eye swelling, hives, pruritis Active Immunizations Given and Recorded Vaccine Date Status Refusal Reason hepatitis B adult vaccine 1 05/28/17 Given hepatitis B adult vaccine 2, 3 11/13/16 Recorded hepatitis B adult vaccine 10/02/16 Given tetanus/diphtheria/pertussis, acel(Tdap) 4 09/20/12 Given 1Result Comment: [05/28/2017] [facility] 92886-525-29 2Location History: [facility] 3Result Comment: [05/28/2017] [facility] [phone] 4Admin Note: vis given Medications emtricitabine-tenofovir disoproxil [...] 12:24:00 EST, Aerosol, Route to Pharmacy Electronically, [id number], [facility] #[id number], 163, cm,... Start Date: 09/27/19 Stop Date: [...]
--- OUTSIDE RECORDS SUMMARY | 2023-02-26 04:08 | XMS_ITS | Continuity of Care Document ---
Author Name Unknown Organization [facility] Address [address] [place] [address]- Care Team Providers Care Client Resource Specialist Name Role Phone Chance BAEZA, Fatimah Ceja Primary Care Physician Encounter [facility] [place] Date(s): 04/02/21 - 05/02/21 [facility] [address] [place] [address]- Attending Physician: Esau Colunga Admitting Physician: Esau Colunga Referring Physician: AdmtrEsau Allergies, Adverse Reactions, Alerts Substance Reaction Severity Status ibuprofen eye swelling, hives, pruritis Active Immunizations Given and Recorded Vaccine Date Status Refusal Reason hepatitis B adult vaccine 1 05/28/17 Given hepatitis B adult vaccine 2, 3 11/13/16 Recorded hepatitis B adult vaccine 10/02/16 Given tetanus/diphtheria/pertussis, acel(Tdap) 4 09/20/12 Given 1Result Comment: [05/28/2017] [facility] 84949-910-74 2Location History: [facility] 3Result Comment: [05/28/2017] [facility] [phone] 4Admin Note: vis given Medications LaMICtal 150 [...] 3 Refills, Maintenance, 09/13/19 9:47:00 EST, Tablet, [facility] #[id number], 163, cm, 09/13/19 8:58:00 EST, Height Start Date: 09/13/19 Status: Ordered ProAir HFA 90 mcg/inh inhalation aerosol with adapter 2, puffs, Inhalation, Every 4 hours, PRN, , cough, or SOB, # 1 each, Refills 0, Tot. Refills 0, Maintenance, 09/27/19 12:24:00 EST, Aerosol, Route to Pharmacy Electronically, [id number], [facility] #[id number], 163, cm,... Start Date: 09/27/19 Stop Date: 10/27/19 Status: Ordered Problem List Condition Effective Dates Status Health Status Inform ant At risk for sexually transmi tted disease due to unprotected sex(Confirmed) Active Bipolar disorder(Confirmed) Active Physical exam(Confirmed) Active PTSD (post-traumatic stress disorder)(Confirmed) Active Smoking(Confirmed) Active Social History Social History Type Response Smoking Status Current every day sm ann; Type: Cigarettes; Other: 1/2 PPD; entered on: 12/18/16 Sex
--- OUTSIDE RECORDS SUMMARY | 2023-02-26 04:08 | XMS_ITS | Continuity of Care Document ---
Author Name Unknown Organization [facility] Address [address] [place] [address]- Care Team Providers Care Pattern Lease Inspector Name Role Phone Chance BAEZA, Fatimah Ceja Primary Care Physician Encounter [facility] ACCT R [id number] Date(s): 12/29/19 - 01/28/[address] [address] Attending Physician: Esau Colunga Admitting Physician: Esau Colunga Referring Physician: AdmtrEsau Allergies, Adverse Reactions, Alerts Substance Reaction Severity Status ibuprofen eye swelling, hives, pruritis Active Immunizations Given and Recorded Vaccine Date Status Refusal Reason hepatitis B adult vaccine 1 05/28/17 Given hepatitis B adult vaccine 2, 3 11/13/16 Recorded hepatitis B adult vaccine 10/02/16 Given tetanus/diphtheria/pertussis, acel(Tdap) 4 09/20/12 Given 1Result Comment: [05/28/2017] [facility] [id number] 2Location History: [facility] [place] 3Result Comment: [05/28/2017] [facility] [phone] 4Admin Note: vis given Medications LaMICtal 25 mg oral tablet 25 mg, 1, tablet, By Mouth, 2 times a day, Refills 0, Maintenance, 09/13/19 9:01:00 EST Start Date: 09/13/19 Status: Ordered norethindrone 0.35 mg oral tablet 1 tablet = 0.35 mg, By Mouth, Daily, # 84 tablet, 3 Refills, Maintenance, 09/13/19 9:47:00 EST, Tablet, [facility] #[id number], 163, cm, 09/13/19 8:58:00 EST, Height Start Date: 09/13/19 Status: Ordered ProAir HFA 90 mcg/inh inhalation aerosol with adapter 2, puffs, Inhalation, Every 4 hours, PRN, , cough, or SOB, # 1 each, Refills 0, Tot. Refills 0, Maintenance, 09/27/19 12:24:00 EST, Aerosol, Route to Pharmacy Electronically, [id number], [facility], 163, cm,... Start Date: 09/27/19 Stop Date: [...]
--- OUTSIDE RECORDS SUMMARY | 2023-02-26 04:08 | XMS_ITS | Continuity of Care Document ---
Author Name Unknown Organization [facility] Address [address] [place] [address]- Care Team Providers Care Astronomy Instructor Name Role Phone Joe Owen DO Primary Care Physician [phone] Encounter [facility] [place] Date(s): 10/21/22 - 11/20/[address] [address] Allergies, Adverse Reactions, Alerts Substance Reaction Severity Status ciprofloxacin Active ibuprofen eye swelling, hives, pruritis Active Immunizations Given and Recorded Vaccine Date Status Refusal Reason hepatitis B adult vaccine 1 05/28/17 Given hepatitis B adult vaccine 2, 3 11/13/16 Recorded hepatitis B adult vaccine 10/02/16 Given tetanus/diphtheria/pertussis, acel(Tdap) 4 09/20/12 Given 1Result Comment: [05/28/2017] [facility] [phone] 2Location History: [facility] 3Result Comment: [05/28/2017] [facility] [phone] 4Admin Note: vis given Medications clindamycin 1% topical lotion 1 application, Topically, 2 times a day, # 60 mL, 6 Refills, Maintenance, 09/01/22 8:45:00 EST, Lotion, [facility] #[id number], Partial fill upon patient request if the [...] Refills, Soft Stop, 10/29/22 14:37:00 EDT, Tablet, [facility] #[id number], Partial fill upon patient request if the prescription is for a schedule II opioid drug., 163, cm, 10/29/22 14:09:00 EDT, Height Start Date: 10/29/22 Status: Ordered ProAir HFA 90 mcg/inh inhalation aerosol with adapter 2, puffs, Inhalation, Every 4 hours, PRN, , cough, or SOB, # 1 each, Refills 0, Tot. Refills 0, Maintenance, 09/27/19 12:24:00 EST, Aerosol, Route to Pharmacy Electronically, [id number], [facility] #[id number], 163, cm,... Start Date: 09/27/19 Stop Date: [...] Care Physician Member Role: PCP Address: Address: [address] [place] [address] Care Team Related Persons Name: NO, ONE
--- OUTSIDE RECORDS SUMMARY | 2023-02-26 04:08 | XMS_ITS | Continuity of Care Document ---
Author Name Unknown Organization [facility] Address [address] [place] [address]- Care Team Providers Care Magazine Publisher Name Role Phone Joe Owen DO Primary Care Physician Encounter [facility] Date(s): 10/12/22 - 11/11/22 [facility] [address] [place] [address]- Allergies, Adverse Reactions, Alerts Substance Reaction Severity Status ciprofloxacin Active ibuprofen eye swelling, hives, pruritis Active Immunizations Given and Recorded Vaccine Date Status Refusal Reason hepatitis B adult vaccine 1 05/28/17 Given hepatitis B adult vaccine 2, 3 11/13/16 Recorded hepatitis B adult vaccine 10/02/16 Given tetanus/diphtheria/pertussis, acel(Tdap) 4 09/20/12 Given 1Result Comment: [05/28/2017] [facility] [id number] 2Location History: [facility] [place] 3Result Comment: [05/28/2017] [facility] [phone] 4Admin Note: vis given Medications clindamycin 1% topical lotion 1 application, Topically, 2 times a day, # 60 mL, 6 Refills, Maintenance, 09/01/22 8:45:00 EST, Lotion, [facility] #[id number], Partial fill upon patient request if the [...] Refills, Soft Stop, 10/29/22 14:37:00 EDT, Tablet, [facility] #[id number], Partial fill upon patient request if the prescription is for a schedule II opioid drug., 163, cm, 10/29/22 14:09:00 EDT, Height Start Date: 10/29/22 Status: Ordered ProAir HFA 90 mcg/inh inhalation aerosol with adapter 2, puffs, Inhalation, Every 4 hours, PRN, , cough, or SOB, # 1 each, Refills 0, Tot. Refills 0, Maintenance, 09/27/19 12:24:00 EST, Aerosol, Route to Pharmacy Electronically, [id number], [facility] #[id number], 163, cm,... Start Date: 09/27/19 Stop Date: 10/27/19 Status: Ordered triamcinolone 0.1% topical cream 1 application, Topically, 2 times a day, for 14 days, # 30 Gm, 0 Refills, Acute 11/12/22 14:40:00 EDT, 10/29/22 14:40:00 EDT, Cream, [facility] #[id number], Partial fill upon patient request if the prescription is for a schedule II opioid drug.,... Start Date: 10/29/22 Stop Date: 11/12/22 Status: Ordered Problem List Condition Confirmation Course [...] Care Physician Member Role: PCP Address: Address: [address] [place] [address]- Care Team Related Persons Name: NO, ONE
--- OUTSIDE RECORDS SUMMARY | 2023-02-26 04:08 | XMS_ITS | Continuity of Care Document ---
Author Name Unknown Organization [facility] Address [address] [place] [address]- Care Team Providers Care Cigar Head Piercer Name Role Phone Daphnie BAEZA, Beth Serrano Primary Care Physician Encounter [facility] Date(s): 10/09/21 - 11/08/21 [facility] [address] [place] [address]- Allergies, Adverse Reactions, Alerts Substance Reaction Severity Status ibuprofen eye swelling, hives, pruritis Active Immunizations Given and Recorded Vaccine Date Status Refusal Reason hepatitis B adult vaccine 1 05/28/17 Given hepatitis B adult vaccine 2, 3 11/13/16 Recorded hepatitis B adult vaccine 10/02/16 Given tetanus/diphtheria/pertussis, acel(Tdap) 4 09/20/12 Given 1Result Comment: [05/28/2017] [facility] [id number] 2Location History: [facility] [place] 3Result Comment: [05/28/2017[phone] 4Admin Note: vis given Medications emtricitabine-tenofovir disoproxil [...] 2 times a day, Refills 0, Maintenance, 02/19/20 9:01:00 EST Start Date: 09/13/19 Status: Ordered ProAir HFA 90 mcg/inh inhalation aerosol with adapter 2, puffs, Inhalation, Every 4 hours, PRN, , cough, or SOB, # 1 each, Refills 0, Tot. Refills 0, Maintenance, 09/27/19 12:24:00 EST, Aerosol, Route to Pharmacy Electronically, [id number], [facility] #[id number], 163, cm,... Start Date: 09/27/19 Stop Date: [...]
--- OUTSIDE RECORDS SUMMARY | 2023-02-26 04:08 | XMS_ITS | Continuity of Care Document ---
Author Name Unknown Organization [facility] Address [address] [place] [address]- Care Team Providers Care Global Marketing Manager Name Role Phone Daphnie BAEZA, Beth Primary Care Physician Encounter 06/26/22 - 07/03/22 [facility] [address], [address] [address] Attending Physician: Shima BAEZA, Annabel Admitting Physician: Shima BAEZA, Annabel Referring Physician: Shima BAEZA, Annabel Allergies, Adverse Reactions, Alerts Substance Reaction Severity Status ciprofloxacin Active ibuprofen eye swelling, hives, pruritis Active Immunizations Given and Recorded Vaccine Date Status Refusal Reason hepatitis B adult vaccine 1 05/28/17 Given hepatitis B adult vaccine 2, 3 11/13/16 Recorded hepatitis B adult vaccine 10/02/16 Given tetanus/diphtheria/pertussis, acel(Tdap) 4 09/20/12 Given 1Result Comment: [05/28/2017] [facility] [id number] 2Location History: [facility] 3Result Comment: [05/28/2017[facility] [phone] 4Admin Note: vis given Medications emtricitabine-tenofovir disoproxil [...] 12:24:00 EST, Aerosol, Route to Pharmacy Electronically, [id number], [facility] #[id number], 163, cm,... Start Date: 09/27/19 Stop Date: 10/27/19 Status: Ordered Problem List Condition Confirmation Course Effective Dates Status Health St [facility] Informant At risk for sexually transmitted disease due to unprotected sex Confirmed Active Bipolar disorder Confirmed Active Exposure to HIV Confirmed Active Physical exam Confirmed Active Obese class I Confirmed Active PTSD (post-traumatic stress disorder) Confirmed Active Smoking Confirmed Active Results Radiology Reports * Exam Date Time Procedure Performing Provider Status 06/26/22 12:[address] Abd/Pelvis W/O + W/ IV Contrast Henry Tai; Laine (Verified) Notes: (CT Abd/Pelvis W/O + W/ IV Contrast) Reason For Exam: renal mass;Other: RESULT: CT Abd/Pelvis W/O + W/ IV Contrast CT Abd/Pelvis W/O + W/ IV Contrast Reason: Other:; renal mass TECHNIQUE: Spiral CT through the abdomen without contrast and through the abdomen and pelvis with IV contrast for renal mass protocol exam, formatted in 3 planes. 100 cc of Omnipaque 300 was administered intravenously. This study was performed without oral contrast. Weight-based protocol using automatic tube modulation was used to optimize exposure parameters. CTDIvol Body: 16.18 mGy, DLP Body: 1203 mGy*cm. COMPARISON: None. FINDINGS: Healthcare Representative View Findings, Lines and Tubes: None. Visualized Chest: Lung bases are clear. No pleural effusion. The heart is normal in size. No pericardial effusion. Diaphragm: Normal. Liver: Normal. Gallbladder: No CT evidence of gallbladder pathology. Bile ducts: No biliary ductal dilation. Spleen: Normal. Pancreas: Normal. Adrenal glands: Normal. Kidneys and ureters: No hydronephrosis, stones, or suspicious masses. Simple appearing 1.5 cm rightrenal cyst is noted, requiring no dedicated follow up. Bladder: Under distended, limiting assessment. Reproductive organs: Unremarkable. Stomach, small bowel, and large bowel: Normal. Appendix: Normal. Peritoneum and retroperitoneum: No ascites or pneumoperitoneum. No omental or mesenteric lesions. Lymph nodes: No enlarged lymph nodes. Blood vessels: Normal. No aneurysm. No evidence of venous thrombosis. Abdominal and pelvic wall: Unremarkable. Bones: No acute abnormality. IMPRESSION: No hydronephrosis. 1.5 cm right renal cyst, requiring no dedicated follow-up. WSN: [id number] Ordering Physician: Annabel Ronquillo Dictated By: Yamile Martin MD Dictated Date/Time: 06/26/22 1:08 pm Reviewed By: Yamile Martin MD Signed By: Yamile Martin MD Signed Date/Time: 06/26/22 1:08 pm Transcribed By: ANANTH Transcribed Date/Time: 06/26/22 12:59 pm Social History Social History Type Response Smoking Status Current every day sarah juarez; Type: Cigarettes; Other: 1/2 PPD; entered on: 12/18/[address] Abdomen and Pelvis WO and W contrast IV * BHSPowerscribe , CIS S: TRANSCRIBE Yamile Martin MD: VERIFY Event Display: Result: Authored Date: CT Abd/Pelvis W/O + W/ IV Contrast Reason: Other:; renal mass TECHNIQUE: Spiral CT through the abdomen without contrast and through the abdomen and pelvis with IV contrast for renal mass protocol exam, formatted in 3 planes. 100 cc of Omnipaque 300 was administered intravenously. This study was performed without oral contrast. Weight-based protocol using automatic tube modulation was used to optimize exposure parameters. CTDIvol Body: 16.18 mGy, DLP Body: 1203 mGy*cm. COMPARISON: None. FINDINGS: Healthcare Representative View Findings, Lines and Tubes: None. Visualized Chest: Lung bases are clear. No pleural effusion. The heart is normal in size. No pericardial effusion. Diaphragm: Normal. Liver: Normal. Gallbladder: No CT evidence of gallbladder pathology. Bile ducts: No biliary ductal dilation. Spleen: Normal. Pancreas: Normal. Adrenal glands: Normal. Kidneys and ureters: No hydronephrosis, stones, or suspicious masses. Simple appearing 1.5 cm rightrenal cyst is noted, requiring no dedicated follow up. Bladder: Under distended, limiting assessment. Reproductive organs: Unremarkable. Stomach, small bowel, and large bowel: Normal. Appendix: Normal. Peritoneum and retroperitoneum: No ascites or pneumoperitoneum. No omental or mesenteric lesions. Lymph nodes: No enlarged lymph nodes. Blood vessels: Normal. No aneurysm. No evidence of venous thrombosis. Abdominal and pelvic wall: Unremarkable. Bones: No acute abnormality. IMPRESSION: No hydronephrosis. 1.5 cm right renal cyst, requiring no dedicated follow-up. WSN: [id number] Ordering Physician: Annabel Ronquillo Dictated By: Yamile Martin MD Dictated Date/Time: 06/26/22 1:08 pm Reviewed By: Yamile Martin MD Signed By: Yamile Martin MD Signed Date/Time: 06/26/22 1:08 pm Transcribed By: ANANTH Transcribed Date/Time: 06/26/22 12:59 pm Patient Care team information Care Team Personnel Name: Beth Eller NP Position: [facility] PCO Associate Professional Member Role: PCP Address: Address: [address] [place] [address] [place] [address]- Care Team Related Persons Name: LAUREN WERO
--- OUTSIDE RECORDS SUMMARY | 2023-02-26 04:08 | XMS_ITS | Continuity of Care Document ---
Author Name Unknown Organization [facility] Address [address] [place] [address]- Care Team Providers Care Preschool Special Education Teacher Name Role Phone Joe Owen DO Primary Care Physician [id number] - 09/30/22 [facility] [address] [place], [place] [address] Attending Physician: Shawn Mcgrath DO Referring Physician: Joe Owen DO Allergies, Adverse Reactions, Alerts Substance Reaction Severity Status ciprofloxacin Active ibuprofen eye swelling, hives, pruritis Active Immunizations Given and Recorded Vaccine Date Status Refusal Reason hepatitis B adult vaccine 1 05/28/17 Given hepatitis B adult vaccine 2, 3 11/13/16 Recorded hepatitis B adult vaccine 10/02/16 Given tetanus/diphtheria/pertussis, acel(Tdap) 4 09/20/12 Given 1Result Comment: [05/28/2017] [facility] [id number] 2Location History: [facility] 3Result Comment: [05/28/2017] [facility] [phone] 4Admin Note: vis given Medications clindamycin 1% topical lotion 1 application, Topically, 2 times a day, # 60 mL, 6 Refills, Maintenance, 09/01/22 8:45:00 EST, Lotion, [facility] #[id number], Partial fill upon patient request if the [...] 12:24:00 EST, Aerosol, Route to Pharmacy Electronically, [id number], [facility] #[id number], 163, cm,... Start Date: 09/27/19 Stop Date: [...] Care Physician Member Role: PCP Address: Address: [address] [place] [address]- Care Team Related Persons Name: LAUREN WERO
--- OUTSIDE RECORDS SUMMARY | 2023-02-26 04:08 | XMS_ITS | Continuity of Care Document ---
Author Name Unknown Organization [facility] Address [address] [place] [address]- Care Team Providers Care Canine Deputy Name Role Phone Joe Owen DO Primary Care Physician [phone] [place] [facility] Date(s): 10/27/22 - 11/26/22 [facility] [address] [place], [place] [address] Allergies, Adverse Reactions, Alerts Substance Reaction Severity Status ciprofloxacin Active ibuprofen eye swelling, hives, pruritis Active Immunizations Given and Recorded Vaccine Date Status Refusal Reason hepatitis B adult vaccine 1 05/28/17 Given hepatitis B adult vaccine 2, 3 11/13/16 Recorded hepatitis B adult vaccine 10/02/16 Given tetanus/diphtheria/pertussis, acel(Tdap) 4 09/20/12 Given 1Result Comment: [05/28/2017] [facility] 57104-889-01 2Location History: [facility] 3Result Comment: [05/28/2017] [facility] [phone] 4Admin Note: vis given Medications Bactrim DS 800 mg-160 mg oral tablet 1 tablet, By Mouth, 2 times a day, for 7 days, # 14 tablet, 0 Refills, Acute 12/03/22 11:58:00 EDT,11/26/22 11:58:00 EDT, Tablet, [email or web address] #[id number], Partial fill upon patient request if the [...] 6 Refills, Maintenance, 09/01/22 8:45:00 EST, Lotion, [email or web address] #[id number], Partial fill upon patient request if the [...] Refills, Soft Stop, 10/29/22 14:37:00 EDT, Tablet, [facility] #[id number], Partial fill upon patient request if the prescription is for a schedule II opioid drug., 163, cm, 10/29/22 14:09:00 EDT, Height Start Date: 10/29/22 Status: Ordered nystatin 999168 u/ml oral suspension 5 mL = 500,000 units, By Mouth, 4 times a day, for 7 days, swish and swallow, # 140 mL, 0 Refills, Acute 12/03/22 11:56:00 EDT, 11/26/22 11:56:00 EDT, Suspension, [email or web address] #[id number], Partialfill upon patient request if the prescription is fo... Start Date: 11/26/22 Stop Date: 12/03/22 Status: Ordered ProAir HFA 90 mcg/inh inhalation aerosol with adapter 2, puffs, Inhalation, Every 4 hours, PRN, , cough, or SOB, # 1 each, Refills 0, Tot. Refills 0, Maintenance, 09/27/19 12:24:00 EST, Aerosol, Route to Pharmacy Electronically, [id number], [facility] #[id number], 163, cm,... Start Date: 09/27/19 Stop Date: [...] Care Physician Member Role: PCP Address: Address: [address] [place] [address]- Care Team Related Persons Name: NO, WERO
--- OUTSIDE RECORDS SUMMARY | 2023-02-26 04:08 | XMS_ITS | Continuity of Care Document ---
Author Name Unknown Organization [facility] Address [address] [place] [address]- Care Team Providers Care Real Estate Appraiser Name Role Phone Joe Owen DO Primary Care Physician Encounter [facility] Date(s): 01/04/23 - 02/03/23 [facility] [address] [place] [address]- Allergies, Adverse Reactions, Alerts Substance Reaction Severity Status ciprofloxacin Active ibuprofen eye swelling, hives, pruritis Active Immunizations Given and Recorded Vaccine Date Status Refusal Reason hepatitis B adult vaccine 1 05/28/17 Given hepatitis B adult vaccine 2, 3 11/13/16 Recorded hepatitis B adult vaccine 10/02/16 Given tetanus/diphtheria/pertussis, acel(Tdap) 4 09/20/12 Given 1Result Comment: [05/28/2017] [facility] 40722-460-77 2Location History: [facility] 3Result Comment: [05/28/2017] [facility] [phone] 4Admin Note: vis given Medications buPROPion 100 mg/12 hours (SR) oral tablet, extended release TAKE 1 TABLET BY MOUTH EVERY MORNING Start Date: 11/26/22 Status: Ordered clindamycin 1% topical lotion 1 application, Topically, 2 times a day, # 60 mL, 6 Refills, Maintenance, 09/01/22 8:45:00 EST, Lotion, [facility] #[id number], Partial fill upon patient request if the [...] Refills, Soft Stop, 10/29/22 14:37:00 EDT, Tablet, [facility][id number], Partial fill upon patient request if the prescription is for a schedule II opioid drug., 163, cm, 10/29/22 14:09:00 EDT, Height Start Date: 10/29/22 Status: Ordered ProAir HFA 90 mcg/inh inhalation aerosol with adapter 2, puffs, Inhalation, Every 4 hours, PRN, , cough, or SOB, # 1 each, Refills 0, Tot. Refills 0, Maintenance, 09/27/19 12:24:00 EST, Aerosol, Route to Pharmacy Electronically, [id number], [facility] #[id number], 163, cm,... Start Date: 09/27/19 Stop Date: [...] Team Personnel Name: Joe Owen DO Position: [facility] Physician - Primary Care Member Role: PCP Address: Address: [address] [place] [address]- Care Team Related Persons Name: NO, ONE
--- OUTSIDE RECORDS SUMMARY | 2023-02-26 04:08 | XMS_ITS | Continuity of Care Document ---
Author Name Unknown Organization [facility] Address [address] [place] [address]- Care Team Providers Care Carpenter Helper Name Role Phone Joe Owen DO Primary Care Physician En[facility] Date(s): 10/21/22 - 11/20/22 [facility] [address] [place] [address]- Allergies, Adverse Reactions, Alerts Substance Reaction Severity Status ciprofloxacin Active ibuprofen eye swelling, hives, pruritis Active Immunizations Given and Recorded Vaccine Date Status Refusal Reason hepatitis B adult vaccine 1 05/28/17 Given hepatitis B adult vaccine 2, 3 11/13/16 Recorded hepatitis B adult vaccine 10/02/16 Given tetanus/diphtheria/pertussis, acel(Tdap) 4 09/20/12 Given 1Result Comment: [05/28/2017] [facility] [id number] 2Location History: [facility] [place] 3Result Comment: [05/28/2017] [facility] [phone] 4Admin Note: vis given Medications clindamycin 1% topical lotion 1 application, Topically, 2 times a day, # 60 mL, 6 Refills, Maintenance, 09/01/22 8:45:00 EST, Lotion, [facility] #[id number], Partial fill upon patient request if the [...] Refills, Soft Stop, 10/29/22 14:37:00 EDT, Tablet, [facility] #[id number], Partial fill upon patient request if the prescription is for a schedule II opioid drug., 163, cm, 10/29/22 14:09:00 EDT, Height Start Date: 10/29/22 Status: Ordered ProAir HFA 90 mcg/inh inhalation aerosol with adapter 2, puffs, Inhalation, Every 4 hours, PRN, , cough, or SOB, # 1 each, Refills 0, Tot. Refills 0, Maintenance, 09/27/19 12:24:00 EST, Aerosol, Route to Pharmacy Electronically, [id number], [facility] #[id number], 163, cm,... Start Date: 09/27/19 Stop Date: [...] Care Physician Member Role: PCP Address: Address: [address] [place] [address]- Care Team Related Persons Name: NO, ONE
--- OUTSIDE RECORDS SUMMARY | 2023-02-26 04:08 | XMS_ITS | Continuity of Care Document ---
Author Name Unknown Organization [facility] Address [address] [place] [address]- Care Team Providers Care Motorized Squad Sergeant Name Role Phone Chance BAEZA, Fatimah Ceja Primary Care Physician En[place] [facility] Date(s): 04/08/21 - 04/15/21 [facility] [address] [place] [address]- Encounter Diagnosis Groin abscess(Discharge Diagnosis) - 04/08/21 Attending Physician: Charlene Yusuf MD Referring Physician: Fatimah Fletcher NP Allergies, Adverse Reactions, Alerts Substance Reaction Severity Status ibuprofen eye swelling, hives, pruritis Active Immunizations Given and Recorded Vaccine Date Status Refusal Reason hepatitis B adult vaccine 1 05/28/17 Given hepatitis B adult vaccine 2, 3 11/13/16 Recorded hepatitis B adult vaccine 10/02/16 Given tetanus/diphtheria/pertussis, acel(Tdap) 4 09/20/12 Given 1Result Comment: [05/28/2017] [facility] [id number] 2Location History: [facility] 3Result Comment: [05/28/2017] [facility] [phone] 4Admin Note: vis given Medications LaMICtal 150 [...] 3 Refills, Maintenance, 09/13/19 9:47:00 EST, Tablet, [facility] #[id number], 163, cm, 09/13/19 8:58:00 EST, Height Start Date: 09/13/19 Status: Ordered ProAir HFA 90 mcg/inh inhalation aerosol with adapter 2, puffs, Inhalation, Every 4 hours, PRN, , cough, or SOB, # 1 each, Refills 0, Tot. Refills 0, Maintenance, 09/27/19 12:24:00 EST, Aerosol, Route to Pharmacy Electronically, [id number], [facility] #[id number], 163, cm,... Start Date: 09/27/19 Stop Date: 10/27/19 Status: Ordered Problem List Condition Effective Dates Status Health Status Inform ant At risk for sexually transmi tted disease due to unprotected sex(Confirmed) Active Bipolar disorder(Confirmed) Active Physical exam(Confirmed) Active PTSD (post-traumatic stress disorder)(Confirmed) Active Smoking(Confirmed) Active Diagnosis Diagnosis Type Effective Dates Health Status Cl inical Service Informant Groin abscess Discharge Diagnosis 04/08/21 Vital Signs Most recent to oldest [Reference Range]: 1 Height 163.00 cm (04/08/21 11:02 AM) Oxygen Saturation [94-100 %] 99 % (04/08/21 11:02 AM) Pulse Rate [55-90 bpm] 63 bpm (04/08/21 11:02 AM) Blood Pressure [90-138/55-84 mm Hg] 134/ 83mm Hg (04/08/21 11:02 AM) Respiratory Rate [16-30 br/min] 20 br/mi n (04/08/21 11:02 AM) Temperature [96.8-100.4 DegF] 98.0 DegF (04/08/21 11:02 AM) Mode of Delivery (Oxygen) Room air (04/08/21 11:02 AM) Blood pressure sites Arm, left (04/08/21 11:02 AM) Temperature Route Temporal (04/08/21 11:02 AM) Social History Social History Type Response Smoking Status Current every day sarah juarez; Type: Cigarettes; Other: 1/2 PPD; entered on: 12/18/16 Sex
--- OUTSIDE RECORDS SUMMARY | 2023-02-26 04:08 | XMS_ITS | Continuity of Care Document ---
Author Name Unknown Organization [facility] Address [address] [place] [address]- Care Team Providers Care Library Circulation Department Chief Name Role Phone Daphnie BAEZA, Beth Serrano Primary Care Physician En[facility] Date(s): 02/26/22 - 03/28/22 [facility] [address] [place], [place] [address] Attending Physician: Esau Colunga Admitting Physician: AdmtrEsau [...] 4 09/20/12 Given 1Result Comment: [05/28/2017] [facility] [id number] 2Location History: [facility] 3Result Comment: [05/28/2017] [facility] [phone] 4Admin Note: vis given Medications emtricitabine-tenofovir disoproxil [...] 12:24:00 EST, Aerosol, Route to Pharmacy Electronically, [id number], [facility] #[id number], 163, cm,... Start Date: 09/27/19 Stop Date: [...] Team Personnel Name: Beth Eller NP [facility] [address]
--- OUTSIDE RECORDS SUMMARY | 2023-02-26 04:08 | XMS_ITS | Continuity of Care Document ---
Author Name Unknown Organization [facility] Address [address] [place] [address]- Care Team Providers Care Faculty Support Coordinator Name Role Phone Daphnie BAEZA, Beth Serrano Primary Care Physician En[facility] Date(s): 10/31/21 - 11/30/21 [facility] [address] [place], [place] [address] Attending Physician: Esau Colunga Admitting [...] 1Result Comment: [05/28/2017] [facility] [id number] 2Location History: [facility] 3Result Comment: [05/28/2017] [facility] [phone] 4Admin Note: vis given Medications emtricitabine-tenofovir disoproxil [...] 12:24:00 EST, Aerosol, Route to Pharmacy Electronically, [id number], [facility] #[id number], 163, cm,... Start Date: 09/27/19 Stop Date: [...]
--- OUTSIDE RECORDS SUMMARY | 2023-02-26 04:08 | XMS_ITS | Continuity of Care Document ---
Author Name Unknown Organization [facility] Address [address] [place] [address]- Care Team Providers Care Instrument Lens Grinder Name Role Phone Joe Owen DO Primary Care Physician Encounter [facility] Date(s): 10/28/22 - 11/27/22 [facility] [address] [place] [address]- Allergies, Adverse Reactions, Alerts Substance Reaction Severity Status ciprofloxacin Active ibuprofen eye swelling, hives, pruritis Active Immunizations Given and Recorded Vaccine Date Status Refusal Reason hepatitis B adult vaccine 1 05/28/17 Given hepatitis B adult vaccine 2, 3 11/13/16 Recorded hepatitis B adult vaccine 10/02/16 Given tetanus/diphtheria/pertussis, acel(Tdap) 4 09/20/12 Given 1Result Comment: [05/28/2017] [facility] 95121-859-99 [facility] 3[facility] Comment: [05/28/2017] [facility] [phone] 4Admin Note: vis given Medications Bactrim DS 800 mg-160 mg oral tablet 1 tablet, By Mouth, 2 times a day, for 7 days, # 14 tablet, 0 Refills, Acute 12/03/22 11:58:00 EDT,11/26/22 11:58:00 EDT, Tablet, [facility] #[id number], Partial fill upon patient request if the [...] 6 Refills, Maintenance, 09/01/22 8:45:00 EST, Lotion, [facility] #[id number], Partial fill upon patient request if the [...] Refills, Soft Stop, 10/29/22 14:37:00 EDT, Tablet, [facility][id number], Partial fill upon patient request if the prescription is for a schedule II opioid drug., 163, cm, 10/29/22 14:09:00 EDT, Height Start Date: 10/29/22 Status: Ordered nystatin 222914 u/ml oral suspension 5 mL = 500,000 units, By Mouth, 4 times a day, for 7 days, swish and swallow, # 140 mL, 0 Refills, Acute 12/03/22 11:56:00 EDT, 11/26/22 11:56:00 EDT, Suspension, [facility] #[id number], Partialfill upon patient request if the prescription is fo... Start Date: 11/26/22 Stop Date: 12/03/22 Status: Ordered ProAir HFA 90 mcg/inh inhalation aerosol with adapter 2, puffs, Inhalation, Every 4 hours, PRN, , cough, or SOB, # 1 each, Refills 0, Tot. Refills 0, Maintenance, 09/27/19 12:24:00 EST, Aerosol, Route to Pharmacy Electronically, [id number], [facility] #[id number], 163, cm,... Start Date: 09/27/19 Stop Date: [...] Care Physician Member Role: PCP Address: Address: [address] [place] [address]- Care Team Related Persons Name: NO, WERO
--- OUTSIDE RECORDS SUMMARY | 2023-02-26 04:08 | XMS_ITS | Continuity of Care Document ---
Author Name Unknown Organization [facility] Address [address] [place] [address]- Care Team Providers Care Brokerage Purchase And Sale Clerk Name Role Phone Chance BAEZA, Fatimah Ceja Primary Care Physician En[place] [facility] Date(s): 09/22/19 - 10/02/19 [facility] [address] [place] [address]- [facility] Attending Physician: Esau Colunga Admitting Physician: AdmtrEsau [...] 1Result Comment: [05/28/2017] [facility] [id number] 2Location History: [facility] 3Result Comment: [05/28/2017] [facility] [phone] 4Admin Note: vis given Medications cyclobenzaprine 5 mg oral tablet 1-2 tablets, By Mouth, 2 times a day, PRN muscle spasm, for 7 days, # 20 tablet, 0 Refills, Acute 10/04/19 12:24:00 EDT, 09/27/19 12:24:00 EST, Tablet, [facility] #[id number], 163, cm, 09/27/19 11:25:00 EST, Height Start Date: 09/27/19 Stop Date: 10/04/19 Status: Ordered LaMICtal 25 mg oral tablet 25 mg, 1, tablet, By Mouth, 2 times a day, Refills 0, Maintenance, 09/13/19 9:01:00 EST Start Date: 09/13/19 Status: Ordered norethindrone 0.35 mg oral tablet 1 tablet = 0.35 mg, By Mouth, Daily, # 84 tablet, 3 Refills, Maintenance, 09/13/19 9:47:00 EST, Tablet, [facility] #[id number], 163, cm, 09/13/19 8:58:00 EST, Height Start Date: 09/13/19 Status: Ordered ProAir HFA 90 mcg/inh inhalation aerosol with adapter 2, puffs, Inhalation, Every 4 hours, PRN, , cough, or SOB, # 1 each, Refills 0, Tot. Refills 0, Maintenance, 09/27/19 12:24:00 EST, Aerosol, Route to Pharmacy Electronically, [id number], [facility] #[id number], 163, cm,... Start Date: 09/27/19 Stop Date: [...]
--- OUTSIDE RECORDS SUMMARY | 2023-02-26 04:08 | XMS_ITS | Continuity of Care Document ---
Author Name Unknown Organization [facility] Address [address] [place] [address]- Care Team Providers Care Director Print Name Role Phone Joe Owen DO Primary Care Physician Encounter [facility] Date(s): 12/01/22 - 12/31/22 [facility] [address] [place] [address]- Allergies, Adverse Reactions, Alerts Substance Reaction Severity Status ciprofloxacin Active ibuprofen eye swelling, hives, pruritis Active Immunizations Given and Recorded Vaccine Date Status Refusal Reason hepatitis B adult vaccine 1 05/28/17 Given hepatitis B adult vaccine 2, 3 11/13/16 Recorded hepatitis B adult vaccine 10/02/16 Given tetanus/diphtheria/pertussis, acel(Tdap) 4 09/20/12 Given 1Result Comment: [05/28/2017] [facility] 50475-976-16 2Location History: [facility] 3Result Comment: [05/28/2017] [facility] [phone] 4Admin Note: vis given Medications buPROPion 100 mg/12 hours (SR) oral tablet, extended release TAKE 1 TABLET BY MOUTH EVERY MORNING Start Date: 11/26/22 Status: Ordered clindamycin 1% topical lotion 1 application, Topically, 2 times a day, # 60 mL, 6 Refills, Maintenance, 09/01/22 8:45:00 EST, Lotion, [facility] #[id number], Partial fill upon patient request if the [...] Refills, Soft Stop, 10/29/22 14:37:00 EDT, Tablet, [facility] #[id number], Partial fill upon patient request if the prescription is for a schedule II opioid drug., 163, cm, 10/29/22 14:09:00 EDT, Height Start Date: 10/29/22 Status: Ordered ProAir HFA 90 mcg/inh inhalation aerosol with adapter 2, puffs, Inhalation, Every 4 hours, PRN, , cough, or SOB, # 1 each, Refills 0, Tot. Refills 0, Maintenance, 09/27/19 12:24:00 EST, Aerosol, Route to Pharmacy Electronically, [id number], [facility] #[id number], 163, cm,... Start Date: 09/27/19 Stop Date: [...] Team Personnel Name: Joe Owen DO Position: [facility] Physician - Primary Care Member Role: PCP Address: Address: [address] [place] [address]- Care Team Related Persons Name: NO, ONE
--- OUTSIDE RECORDS SUMMARY | 2023-02-26 04:08 | XMS_ITS | Continuity of Care Document ---
Author Name Unknown Organization [facility] Address [address] [place] [address]- Care Team Providers Care Ethyl Blender Name Role Phone Daphnie BAEZA, Beth Serrano Primary Care Physician [phone] [place] [facility] [place] 01/02/22 - 02/01/22 [facility] [address] [place] [address]- Allergies, Adverse Reactions, Alerts Substance Reaction Severity Status ciprofloxacin Active ibuprofen eye swelling, hives, pruritis Active Immunizations Given and Recorded Vaccine Date Status Refusal Reason hepatitis B adult vaccine 1 05/28/17 Given hepatitis B adult vaccine 2, 3 11/13/16 Recorded hepatitis B adult vaccine 10/02/16 Given tetanus/diphtheria/pertussis, acel(Tdap) 4 09/20/12 Given 1Result Comment: [05/28/2017] [facility] 53958-332-59 2Location History: [facility] [place] 3Result Comment: [05/28/2017] [facility] [phone] 4Admin Note: vis given Medications emtricitabine-tenofovir disoproxil [...] 12:24:00 EST, Aerosol, Route to Pharmacy Electronically, [id number], [facility] #[id number], 163, cm,... Start Date: 09/27/19 Stop Date: [...]
--- OUTSIDE RECORDS SUMMARY | 2023-02-26 04:08 | XMS_ITS | Continuity of Care Document ---
Author Name Unknown Organization [facility] Address [address] [place] [address]- Care Team Providers Care Wiring Inspector Name Role Phone Chance BAEZA, Fatimah Ceja Primary Care Physician [place] [facility] [place] 12/25/20 - 01/31/21 [facility] [address] [place] [address]- Attending Physician: Fatimah Fletcher NP Allergies, Adverse Reactions, Alerts Substance Reaction Severity Status ibuprofen eye swelling, hives, pruritis Active Immunizations Given and Recorded Vaccine Date Status Refusal Reason hepatitis B adult vaccine 1 05/28/17 Given hepatitis B adult vaccine 2, 3 11/13/16 Recorded hepatitis B adult vaccine 10/02/16 Given tetanus/diphtheria/pertussis, acel(Tdap) 4 09/20/12 Given 1Result Comment: [05/28/2017] [facility] 42405-078-75 2Location History: [facility] 3Result Comment: [facility]05/28/2017[facility] [phone] 4Admin Note: vis given Medications LaMICtal 25 mg oral tablet 25 mg, 1, tablet, By Mouth, 2 times a day, Refills 0, Maintenance, 09/13/19 9:01:00 EST Start Date: 09/13/19 Status: Ordered norethindrone 0.35 mg oral tablet 1 tablet = 0.35 mg, By Mouth, Daily, # 84 tablet, 3 Refills, Maintenance, 09/13/19 9:47:00 EST, Tablet, [facility] #[id number], 163, cm, 09/13/19 8:58:00 EST, Height Start Date: 09/13/19 Status: Ordered ProAir HFA 90 mcg/inh inhalation aerosol with adapter 2, puffs, Inhalation, Every 4 hours, PRN, , cough, or SOB, # 1 each, Refills 0, Tot. Refills 0, Maintenance, 09/27/19 12:24:00 EST, Aerosol, Route to Pharmacy Electronically, [id number], [facility] #[id number], 163, cm,... Start Date: 09/27/19 Stop Date: [...]
--- OUTSIDE RECORDS SUMMARY | 2023-02-26 04:08 | XMS_ITS | Continuity of Care Document ---
Author Name Unknown Organization [facility] Address [address] [place] [address]- Care Team Providers Care Shake Maker Name Role Phone Daphnie BAEZA, Beth Serrano Primary Care Physician [phone] Encounter [facility] Date(s): 01/27/22 - 02/26/22 [facility] [address] [place], [place] [address] Attending Physician: Esau Colunga Admitting Physician: AdmEsau you Referring Physician: Admtr Ar8 Allergies, Adverse Reactions, Alerts Substance Reaction Severity Status ciprofloxacin Active ibuprofen eye swelling, hives, pruritis Active Immunizations Given and Recorded Vaccine Date Status Refusal Reason hepatitis B adult vaccine 1 05/28/17 Given hepatitis B adult vaccine 2, 3 11/13/16 Recorded hepatitis B adult vaccine 10/02/16 Given tetanus/diphtheria/pertussis, acel(Tdap) 4 09/20/12 Given 1Result Comment: [05/28/2017] [facility] 22378-629-71 2Location History: [facility] 3Result Comment: [05/28/2017] [facility] [phone] 4Admin Note: vis given Medications emtricitabine-tenofovir disoproxil [...] 12:24:00 EST, Aerosol, Route to Pharmacy Electronically, [id number], [facility] #[id number], 163, cm,... Start Date: 09/27/19 Stop Date: [...]
--- OUTSIDE RECORDS SUMMARY | 2023-02-26 04:08 | XMS_ITS | Continuity of Care Document ---
Author Name Unknown Organization [facility] Address [address] [place] [address]- Care Team Providers Care Jewelry Casting Model Maker Name Role Phone Joe Owen DO Primary Care Physician [phone] Encounter [facility] Date(s): 11/26/22 - 12/26/22 [facility] [address] [place], [place] [address] Attending Physician: Esau Colunga Admitting Physician: AdmtrEsau Referring Physician: Admtr, ArJoshua Allergies, Adverse Reactions, Alerts Substance Reaction Severity Status ciprofloxacin Active ibuprofen eye swelling, hives, pruritis Active Immunizations Given and Recorded Vaccine Date Status Refusal Reason hepatitis B adult vaccine 1 05/28/17 Given hepatitis B adult vaccine 2, 3 11/13/16 Recorded hepatitis B adult vaccine 10/02/16 Given tetanus/diphtheria/pertussis, acel(Tdap) 4 09/20/12 Given 1Result Comment: [05/28/2017] [facility] 34059-136-25 2Location History: [facility] 3Result Comment: [05/28/2017] [facility] [phone] 4Admin Note: vis given Medications buPROPion 100 mg/12 hours (SR) oral tablet, extended release TAKE 1 TABLET BY MOUTH EVERY MORNING Start Date: 11/26/22 Status: Ordered clindamycin 1% topical lotion 1 application, Topically, 2 times a day, # 60 mL, 6 Refills, Maintenance, 09/01/22 8:45:00 EST, Lotion, [facility] #[id number], Partial fill upon patient request if the [...] Refills, Soft Stop, 10/29/22 14:37:00 EDT, Tablet, [facility] #[id number], Partial fill upon patient request if the prescription is for a schedule II opioid drug., 163, cm, 10/29/22 14:09:00 EDT, Height Start Date: 10/29/22 Status: Ordered ProAir HFA 90 mcg/inh inhalation aerosol with adapter 2, puffs, Inhalation, Every 4 hours, PRN, , cough, or SOB, # 1 each, Refills 0, Tot. Refills 0, Maintenance, 09/27/19 12:24:00 EST, Aerosol, Route to Pharmacy Electronically, [id number], [facility] #[id number], 163, cm,... Start Date: 09/27/19 Stop Date: [...] Other: 1/2 PPD; entered on: 12/18/16 Sex Laboratory * Event Display: Non BH Lab Results Authored Date: * Event Display: Non BH Lab Results Authored Date: * Event Display: Non BH Lab Results Authored Date: * Event Display: Non BH Lab Results Authored Date: Patient Care team information Care Team Personnel Name: Joe Owen DO Position: S Physician - Primary Care Member Role: PCP Address: Address: [address] [place] [address]- Care Team Related Persons Name: NO, ONE
--- OUTSIDE RECORDS SUMMARY | 2023-02-26 04:08 | XMS_ITS | Continuity of Care Document ---
Author Name Unknown Organization [facility] Address [address] [place] [address]- Care Team Providers Care Email Specialist Name Role Phone Daphnie BAEZA, Beth Serrano Primary Care Physician Encounter [facility] Date(s): 10/07/21 - 11/06/21 [facility] [address] [place] [address]- Allergies, Adverse Reactions, Alerts Substance Reaction Severity Status ibuprofen eye swelling, hives, pruritis Active Immunizations Given and Recorded Vaccine Date Status Refusal Reason hepatitis B adult vaccine 1 05/28/17 Given hepatitis B adult vaccine 2, 3 11/13/16 Recorded hepatitis B adult vaccine 10/02/16 Given tetanus/diphtheria/pertussis, acel(Tdap) 4 09/20/12 Given 1Result Comment: [05/28/2017] [facility] 24010-718-81 2Location History: [facility] [place] 3Result Comment: [05/28/2017] [facility] [phone] 4Admin Note: vis given Medications emtricitabine-tenofovir disoproxil [...] 12:24:00 EST, Aerosol, Route to Pharmacy Electronically, [id number], [facility] #[id number], 163, cm,... Start Date: 09/27/19 Stop Date: [...]
--- OUTSIDE RECORDS SUMMARY | 2023-02-26 04:08 | XMS_ITS | Continuity of Care Document ---
Author Name Unknown Organization [facility] Address [address] [place] [address]- Care Team Providers Care Duplicating Machine Mechanic Name Role Phone Joe Owen DO Primary Care Physician [phone] Encounter [facility] Date(s): 11/02/22 - 12/02/22 [facility] [address] [place] [address]- Allergies, Adverse Reactions, Alerts Substance Reaction Severity Status ciprofloxacin Active ibuprofen eye swelling, hives, pruritis Active Immunizations Given and Recorded Vaccine Date Status Refusal Reason hepatitis B adult vaccine 1 05/28/17 Given hepatitis B adult vaccine 2, 3 11/13/16 Recorded hepatitis B adult vaccine 10/02/16 Given tetanus/diphtheria/pertussis, acel(Tdap) 4 09/20/12 Given 1Result Comment: [05/28/2017] [facility] 77624-177-40 [facility] 3Result Comment: [05/28/2017] [facility] [phone] 4Admin Note: vis given Medications Bactrim DS 800 mg-160 mg oral tablet 1 tablet, By Mouth, 2 times a day, for 7 days, # 14 tablet, 0 Refills, Acute 12/03/22 11:58:00 EDT,11/26/22 11:58:00 EDT, Tablet, [facility] #[id number], Partial fill upon patient request if the [...] 6 Refills, Maintenance, 09/01/22 8:45:00 EST, Lotion, [facility] #[id number], Partial fill upon patient request if the [...] Refills, Soft Stop, 10/29/22 14:37:00 EDT, Tablet, [facility] #[id number], Partial fill upon patient request if the prescription is for a schedule II opioid drug., 163, cm, 10/29/22 14:09:00 EDT, Height Start Date: 10/29/22 Status: Ordered nystatin 312490 u/ml oral suspension 5 mL = 500,000 units, By Mouth, 4 times a day, for 7 days, swish and swallow, # 140 mL, 0 Refills, Acute 12/03/22 11:56:00 EDT, 11/26/22 11:56:00 EDT, Suspension, [facility] #[id number], Partialfill upon patient request if the prescription is fo... Start Date: 11/26/22 Stop Date: 12/03/22 Status: Ordered ProAir HFA 90 mcg/inh inhalation aerosol with adapter 2, puffs, Inhalation, Every 4 hours, PRN, , cough, or SOB, # 1 each, Refills 0, Tot. Refills 0, Maintenance, 09/27/19 12:24:00 EST, Aerosol, Route to Pharmacy Electronically, [id number], [facility] #[id number], 163, cm,... Start Date: 09/27/19 Stop Date: [...] Care Physician Member Role: PCP Address: Address: [address] [place] [address]- Care Team Related Persons Name: NO, WERO
--- OUTSIDE RECORDS SUMMARY | 2023-02-26 04:08 | XMS_ITS | Continuity of Care Document ---
Author Name Unknown Organization [facility] Address [address] [place] [address]- Care Team Providers Care Merchandise Deliverer Name Role Phone Joe Owen DO Primary Care Physician En[place] [facility] Date(s): 08/31/22 - 09/30/22 [facility] [address] [place] [address]- Allergies, Adverse Reactions, Alerts Substance Reaction Severity Status ciprofloxacin Active ibuprofen eye swelling, hives, pruritis Active Immunizations Given and Recorded Vaccine Date Status Refusal Reason hepatitis B adult vaccine 1 05/28/17 Given hepatitis B adult vaccine 2, 3 11/13/16 Recorded hepatitis B adult vaccine 10/02/16 Given tetanus/diphtheria/pertussis, acel(Tdap) 4 09/20/12 Given 1Result Comment: [05/28/2017] [facility] 99420-487-60 2Location History: [facility] [place] 3Result Comment: [05/28/2017] [facility] [phone] 4Admin Note: vis given Medications clindamycin 1% topical lotion 1 application, Topically, 2 times a day, # 60 mL, 6 Refills, Maintenance, 09/01/22 8:45:00 EST, Lotion, [facility] #[id number], Partial fill upon patient request if the [...] 12:24:00 EST, Aerosol, Route to Pharmacy Electronically, [id number], [facility] #[id number], 163, cm,... Start Date: 09/27/19 Stop Date: [...] Team Personnel Name: Joe Owen DO Position: [facility] Primary Care Physician Member Role: PCP Address: Address: [address] [place] [address]- Care Team Related Persons Name: NO, WERO
--- OUTSIDE RECORDS SUMMARY | 2023-02-26 04:08 | XMS_ITS | Continuity of Care Document ---
Author Name Unknown Organization [facility] Address [address] [place] [address]- Care Team Providers Care Brazing Machine Tender Name Role Phone Chance BAEZA, Fatimah Ceja Primary Care Physician Encounter [facility] Date(s): 06/03/21 - 07/03/21 [facility] [address] [place] [address]- Allergies, Adverse Reactions, Alerts Substance Reaction Severity Status ibuprofen eye swelling, hives, pruritis Active Immunizations Given and Recorded Vaccine Date Status Refusal Reason hepatitis B adult vaccine 1 05/28/17 Given hepatitis B adult vaccine 2, 3 11/13/16 Recorded hepatitis B adult vaccine 10/02/16 Given tetanus/diphtheria/pertussis, acel(Tdap) 4 09/20/12 Given 1Result Comment: [05/28/2017] [facility] 28989-865-89 2Location History: [facility] [place] 3Result Comment: [05/28/2017[facility] [phone] 4Admin Note: vis given Medications LaMICtal 150 [...] 3 Refills, Maintenance, 09/13/19 9:47:00 EST, Tablet, [facility] #[id number], 163, cm, 09/13/19 8:58:00 EST, Height Start Date: 09/13/19 Status: Ordered ProAir HFA 90 mcg/inh inhalation aerosol with adapter 2, puffs, Inhalation, Every 4 hours, PRN, , cough, or SOB, # 1 each, Refills 0, Tot. Refills 0, Maintenance, 09/27/19 12:24:00 EST, Aerosol, Route to Pharmacy Electronically, [id number], [facility] #[id number], 163, cm,... Start Date: 09/27/19 Stop Date: [...]
--- OUTSIDE RECORDS SUMMARY | 2023-02-26 04:08 | XMS_ITS | Continuity of Care Document ---
Author Name Unknown Organization [facility] Address [address] [place] [address]- Care Team Providers Care Wirer Helper Name Role Phone Chance BAEZA, Fatimah Ceja Primary Care Physician Encounter [facility] [place] [place] Date(s): 08/10/19 - 08/17/19 [facility] [address] [place] [address]- [facility] Encounter Diagnosis Bipolar disorder(Discharge Diagnosis) - 08/10/19 Smoking(Discharge Diagnosis) - 08/10/19 Attending Physician: Fatimah Fletcher NP Allergies, Adverse Reactions, Alerts Substance Reaction Severity Status ibuprofen eye swelling, hives, pruritis Active Immunizations Given and Recorded Vaccine Date Status Refusal Reason hepatitis B adult vaccine 1 05/28/17 Given hepatitis B adult vaccine 2, 3 11/13/16 Recorded hepatitis B adult vaccine 10/02/16 Given tetanus/diphtheria/pertussis, acel(Tdap) 4 09/20/12 Given 1Result Comment: [05/28/2017] [facility] [id number] 2Location History: [facility] 3Result Comment: [05/28/2017] [facility] [phone] 4Admin Note: vis given Medications diclofenac sodium 75 mg oral delayed release tablet 1 tablet = 75 mg, By Mouth, 2 times a day, # 14 tablet, 0 Refills, Maintenance, 06/16/19 10:52:42 EST, [facility] Tablet Start Date: 06/16/19 Stop Date: 06/23/19 Status: Ordered Problem List Condition Effective Dates Status Health Status Inform ant Anxiety associated with depression(Confirmed) Active At risk for sexually transmi tted disease due to unprotected sex(Confirmed) Active Bipolar disorder(Confirmed) Active Physical exam(Confirmed) Active PTSD (post-traumatic stress disorder)(Confirmed) Active Smoking(Confirmed) Active Diagnosis Diagnosis Type Effective Dates Health Status inical Service Informant Bipolar disorder Discharge Diagnosis 08/10/19 Smoking Discharge Diagnosis 08/10/19 Vital Signs Most recent to oldest [Reference Range]: 1 Height 163.00 cm (08/10/19 8:01 AM) Weight 80.1 kg (08/10/19 8:01 AM) Oxygen Saturation [94-100 %] 98 % (08/10/19 8:01 AM) Pulse Rate [55-90 bpm] 77 bpm (08/10/19 8:01 AM) Body Mass Index [18.5-24.99] 30.15 *>HHI* (08/10/19 8:01 AM) Blood Pressure [90-138/55-84 mm Hg] 112/ 70mm Hg (08/10/19 8:01 AM) Respiratory Rate [16-30 br/min] 20 br/mi n (08/10/19 8:01 AM) Blood pressure sites Arm, right (08/10/19 8:01 AM) Social History Social History Type Response Smoking Status Current every day sarah juarez; Type: Cigarettes; Other: 1/2 PPD; entered on: 12/18/16 Sex
--- OUTSIDE RECORDS SUMMARY | 2023-02-26 04:08 | XMS_ITS | Continuity of Care Document ---
Author Name Unknown Organization [facility] Address [address] [place] [address]- Care Team Providers Care Wrapper Stemmer Operator Name Role Phone Joe Owen DO Primary Care Physician Encounter [facility] Date(s): 10/27/22 - 11/26/22 [facility] [address], [place] [address] Allergies, Adverse Reactions, Alerts Substance Reaction Severity Status ciprofloxacin Active ibuprofen eye swelling, hives, pruritis Active Immunizations Given and Recorded Vaccine Date Status Refusal Reason hepatitis B adult vaccine 1 05/28/17 Given hepatitis B adult vaccine 2, 3 11/13/16 Recorded hepatitis B adult vaccine 10/02/16 Given tetanus/diphtheria/pertussis, acel(Tdap) 4 09/20/12 Given 1Result Comment: [05/28/2017] [facility][NOTE 3] [id number] 2Location History: [facility] 3Result Comment: [05/28/2017] [facility] [phone] 4Admin Note: vis given Medications Bactrim DS 800 mg-160 mg oral tablet 1 tablet, By Mouth, 2 times a day, for 7 days, # 14 tablet, 0 Refills, Acute 12/03/22 11:58:00 EDT,11/26/22 11:58:00 EDT, Tablet, [facility] #[id number], Partial fill upon patient request if the [...] 6 Refills, Maintenance, 09/01/22 8:45:00 EST, Lotion, [facility] #[id number], Partial fill upon patient request if the [...] Refills, Soft Stop, 10/29/22 14:37:00 EDT, Tablet, [facility] #[id number], Partial fill upon patient request if the prescription is for a schedule II opioid drug., 163, cm, 10/29/22 14:09:00 EDT, Height Start Date: 10/29/22 Status: Ordered nystatin 873652 u/ml oral suspension 5 mL = 500,000 units, By Mouth, 4 times a day, for 7 days, swish and swallow, # 140 mL, 0 Refills, Acute 12/03/22 11:56:00 EDT, 11/26/22 11:56:00 EDT, Suspension, [facility] #[id number], Partialfill upon patient request if the prescription is fo... Start Date: 11/26/22 Stop Date: 12/03/22 Status: Ordered ProAir HFA 90 mcg/inh inhalation aerosol with adapter 2, puffs, Inhalation, Every 4 hours, PRN, , cough, or SOB, # 1 each, Refills 0, Tot. Refills 0, Maintenance, 09/27/19 12:24:00 EST, Aerosol, Route to Pharmacy Electronically, [id number], [facility] #[id number], 163, cm,... Start Date: 09/27/19 Stop Date: [...] Care Physician Member Role: PCP Address: Address: [address] [place] [id number]- Care Team Related Persons Name: NO, WERO
--- OUTSIDE RECORDS SUMMARY | 2023-02-26 04:08 | XMS_ITS | Continuity of Care Document ---
Author Name Unknown Organization [facility] Address [address] [place] [address]- Care Team Providers Care Email Marketing Coordinator Name Role Phone Daphnie BAEZA, Beth Serrano Primary Care Physician Encounter [facility] Date(s): 12/03/21 - 01/02/22 [facility] [address] [place] [address]- Attending Physician: Esau Colunga Admitting Physician: Esau [...] Given 1Result Comment: [05/28/2017] [facility] [id number] 2Location History: [facility] 3Result Comment: [05/28/2017] [facility] [phone] 4Admin Note: vis given Medications emtricitabine-tenofovir disoproxil [...] 12:24:00 EST, Aerosol, Route to Pharmacy Electronically, [id number], [facility] #[id number], 163, cm,... Start Date: 09/27/19 Stop Date: [...]
--- OUTSIDE RECORDS SUMMARY | 2023-02-26 04:08 | XMS_ITS | Continuity of Care Document ---
Author Name Unknown Organization [facility] Address [address] [place] [address]- Care Team Providers Care Bicycle I Assembler Name Role Phone Faitmah Fletcher NP Primary Care Physician Encounter [facility] [id number] Date(s): 02/22/20 - 02/29/20 [facility] [address] [place] [address]- [facility] Attending Physician: Not on Staff, Attending MD Referring Physician: Fatimah Fletcher NP Allergies, Adverse Reactions, Alerts Substance Reaction Severity Status ibuprofen eye swelling, hives, pruritis Active Immunizations Given and Recorded Vaccine Date Status Refusal Reason hepatitis B adult vaccine 1 05/28/17 Given hepatitis B adult vaccine 2, 3 11/13/16 Recorded hepatitis B adult vaccine 10/02/16 Given tetanus/diphtheria/pertussis, acel(Tdap) 4 09/20/12 Given 1Result Comment: [05/28/2017] [facility] [id number] 2Location History: [facility] 3Result Comment: [05/28/2017] [facility] [phone] 4Admin Note: vis given Medications LaMICtal 25 mg oral tablet 25 mg, 1, tablet, By Mouth, 2 times a day, Refills 0, Maintenance, 09/13/19 9:01:00 EST Start Date: 09/13/19 Status: Ordered norethindrone 0.35 mg oral tablet 1 tablet = 0.35 mg, By Mouth, Daily, # 84 tablet, 3 Refills, Maintenance, 09/13/19 9:47:00 EST, Tablet, [facility] #[id number], 163, cm, 09/13/19 8:58:00 EST, Height Start Date: 09/13/19 Status: Ordered ProAir HFA 90 mcg/inh inhalation aerosol with adapter 2, puffs, Inhalation, Every 4 hours, PRN, , cough, or SOB, # 1 each, Refills 0, Tot. Refills 0, Maintenance, 09/27/19 12:24:00 EST, Aerosol, Route to Pharmacy Electronically, [id number], [facility] #[id number], 163, cm,... Start Date: 09/27/19 Stop Date: [...]
--- OUTSIDE RECORDS SUMMARY | 2023-02-26 04:08 | XMS_ITS | Continuity of Care Document ---
Author Name Unknown Organization [facility] em Address Unknown Care Team Providers Care Medical Imaging Technician Name Role Phone Joe Owen DO Primary Care Physician Encounter [facility] Date(s): 11/27/22 - 12/27/22 [facility] Attending Physician: Esau Colunga Admitting Physician: Esau Colunga Referring Physician: Esau Colunga Allergies, Adverse Reactions, Alerts Substance Reaction Severity Status ciprofloxacin Active ibuprofen eye swelling, hives, pruritis Active Immunizations Given and Recorded Vaccine Date Status Refusal Reason hepatitis B adult vaccine 1 05/28/17 Given hepatitis B adult vaccine 2, 3 11/13/16 Recorded hepatitis B adult vaccine 10/02/16 Given tetanus/diphtheria/pertussis, acel(Tdap) 4 09/20/12 Given 1Result Comment: [05/28/2017] [facility] [id number] 2Location History: [facility] 3Result Comment: [05/28/2017] [facility] [phone] 4Admin Note: vis given Medications buPROPion 100 mg/12 hours (SR) oral tablet, extended release TAKE 1 TABLET BY MOUTH EVERY MORNING Start Date: 11/26/22 Status: Ordered clindamycin 1% topical lotion 1 application, Topically, 2 times a day, # 60 mL, 6 Refills, Maintenance, 09/01/22 8:45:00 EST, Lotion, [facility] #[id number], Partial fill upon patient request if the [...] Refills, Soft Stop, 10/29/22 14:37:00 EDT, Tablet, [facility] #[id number], Partial fill upon patient request if the prescription is for a schedule II opioid drug., 163, cm, 10/29/22 14:09:00 EDT, Height Start Date: 10/29/22 Status: Ordered ProAir HFA 90 mcg/inh inhalation aerosol with adapter 2, puffs, Inhalation, Every 4 hours, PRN, , cough, or SOB, # 1 each, Refills 0, Tot. Refills 0, Maintenance, 09/27/19 12:24:00 EST, Aerosol, Route to Pharmacy Electronically, [id number], [facility] #[id number], 163, cm,... Start Date: 09/27/19 Stop Date: [...] Team Personnel Name: Joe Owen DO Position: [facility] Physician - Primary Care Member Role: PCP Address: Address: [address] [place] [id number]- Care Team Related Persons Name: NO, ONE
[2023-02-26 04:18] LABS: Appearance Urine Clear; Color Urine Yellow; Glucose Urine UA Negative (Negative); Leukocyte Esterase Urine Negative (Negative); Nitrite Urine Negative (Negative); PH 6.5 (5.0-9.0); Specific Gravity - Urine 1.015 (1.005-1.025); Urine Blood Negative (Negative); Urine Ketones Negative (Negative); Urine Protein Negative (Neg-Trace)
[2023-02-26 04:20] LABS: UPreg QC Valid YES; Urine Pregnancy NEGATIVE (NEGATIVE)
[2023-02-26] MEDS: Doxycycline Monohydrate 100 MG CAPSULE PO (04:20)
[2023-02-26] MEDS: cefTRIAXone sodium 500 MG, Lidocaine HCl 1 % MPF 1 ML IM (04:20)
[2023-02-26 04:23] LABS: RBC Urine 0-2 /HPF (0-2); Squamous Epithelial Cell Urine 0-2 /HPF (0-2); WBC Urine 0-5 /HPF (0-5)
[2023-02-26 04:24] LABS: Bacteria Urine None Seen (None Seen); Hyaline Casts Urine 0-2 /LPF (0-2)
--- NOTE | 2023-02-26 04:29 | PC.NURSE ---
Assumed care of pt. pt indicating that during sex yesterday, condom broke and she is concerned about exposure. unaware of partner status. Requesting post-exposure prophylaxis. medications administered per orders.
[2023-02-26 05:26] LABS: HIV AB/AG Nonreactive (Nonreactive); HIV Num 1 0.06 S/CO (0.00-0.99)
[2023-02-26 05:36] LABS: HBS Num1 > 1000.00 mIU/mL (0-7.99); HBc Num1 0.29 S/CO (0.00-0.79); HBsAGNum1 0.39 S/CO (0.00-0.99); Hepatitis B Core Antibody Nonreactive (Nonreactive); Hepatitis B Surface Antigen Negative (Negative); ~Hepatitis B Surface Antibody REACTIVE (Nonreactive); ~Hepatitis C Antibody Nonreactive (Nonreactive)
[2023-02-26 05:46] LABS: CT PCR NOT DETECTED (Not Detect.); NG PCR NOT DETECTED (Not Detect.)
== END 2023-02-26 05:43 | disposition home or self-care (01) ==
PROVIDERS: Emergency Provider Emergency Medicine; PCP Family Medicine
DX: Z20.2 Contact with and (suspected) exposure to infections with a predominantly sexual mode of transmission (principal)
CPT/HCPCS: 0353U; 36415; 81001; 81025; 86704; 86706; 86803; 87340; 87389; 96372; 99284; J0696